=== PATIENT | male | born 1960 | race Caucasian/White ===

== ENCOUNTER → 2016-04-29 | Outpatient (CLI) | payer BC ==
--- NOTE | 2016-04-30 06:29 | REP ---
Left sided pain, status post trauma. There are no prior chest examinations to review. There is an abnormal patchy opacity seen in the left lower lobe. The right lung is clear and the right pleural angle is sharp. The heart is not enlarged. The osseous structures are within normal limits. IMPRESSION: Abnormal left lower lobe opacity. Since the patient has been involved in trauma, pulmonary contusion cannot be ruled out. Signed by Vishnu Brice DO 04/30/2016 12:05 P
--- NOTE | 2016-04-30 06:31 | REP ---
LEFT RIB SERIES: Five views of the left ribs. REASON: Pain after contusion. Five views of the left ribs show no evidence of an acute fracture. IMPRESSION: No evidence of a rib fracture. MTDD
== END ==
LOC: M RAD 12:33
PROVIDERS: ATTEND Physician Assistant Medical
DX: R07.9 Chest pain, unspecified (principal)

== ENCOUNTER 2016-05-29 12:27 | Inpatient (IN) | payer BC ==
[~2016-05-29] VITALS: Ht 177.8 cm; Wt 79.7 kg
[2016-05-29] MEDS ORDERED: OMEP20CA3 PO ×2 (12:48→15:55)
[2016-05-29] MEDS ORDERED: ANOR1AER INH (12:48)
[2016-05-29] MEDS ORDERED: CYCL10TA PO ×2 (12:48→15:55)
[2016-05-29] MEDS ORDERED: ALBU83IN NEB (12:48)
[2016-05-29] MEDS ORDERED: ALBU17IN INH ×2 (12:48→15:55)
[2016-05-29] MEDS ORDERED: IPRA2IN NEB (12:48)
[2016-05-29] MEDS ORDERED: HYDR-3713 PO ×2 (12:48→15:55)
[2016-05-29 13:56] LABS: BASO # 0.1 K/mm3 (0.0-0.2); BASO % 0.6 % (0.0-1.0); EOS # 0.1 K/mm3 (0.0-0.50); EOS % 0.4 % (0.0-3.0); LARGE UNSTAINED CELL # 0.2 K/mm3 (0.0-0.4); LARGE UNSTAINED CELL % 1.2 % (0.0-4.0); LYMPH # 1.3 K/mm3 (1.5-4.5); LYMPH % 7.7 % (24.0-44.0); MEAN CORPUSCULAR HEMOGLOBIN 29.5 pg (27.0-33.0); MEAN CORPUSCULAR HGB CONC 33.3 g/dl (32.0-36.5); MEAN CORPUSCULAR VOLUME 88.6 fl (80.0-96.0); MONO % 6.8 % (0.0-5.0); NEUTROPHILS % 83.4 % (36.0-66.0); PLATELET COUNT, AUTOMATED 385 k/mm3 (150-450); RED CELL DISTRIBUTION WIDTH 13.2 % (11.5-14.5); WHITE BLOOD COUNT 14.4 K/mm3 (4.0-10.0)
[2016-05-29 14:09] LABS: ANION GAP 7 MEQ/L (8-16); BLOOD UREA NITROGEN 14 MG/DL (7-18); CALCIUM LEVEL 9.7 MG/DL (8.5-10.1); CARBON DIOXIDE LEVEL 31 MEQ/L (21-32); CHLORIDE LEVEL 93 MEQ/L (98-107); CREATININE FOR GFR 0.76 MG/DL (0.70-1.30); GLOMERULAR FILTRATION RATE > 60.0 (>56); GLUCOSE, FASTING 106 MG/DL (70-105); POTASSIUM SERUM 4.5 MEQ/L (3.5-5.1); SODIUM LEVEL 131 MEQ/L (136-145)
[2016-05-29] MEDS ORDERED: fentaNYL 100 MCG/2 ML INJECTION (J3010) IV ONE (15:15)
[2016-05-29] MEDS ORDERED: fentaNYL 100 MCG/2 ML INJECTION (J3010) As Ordered ONE (15:17)
[2016-05-29] MEDS ORDERED: HEPARIN SOD (PORCINE) 5000 UNITS/ML VIAL IV ONE (15:30)
--- NOTE | 2016-05-29 15:35 | REP ---
Portable chest x-ray: Single view. History: Dyspnea, cough. Comparison chest x-rays from April 29, 2016. Findings: There is blunting of the left lateral pleural angle indicating a small to moderate left pleural effusion. This is a new finding when compared with the prior study. The prior study showed an infiltrate in the left lower lobe and there is increased density behind the heart and in the left perihilar region suggesting increased consolidation, possibly with atelectasis in the left lower lobe. Right lung remains clear. Heart is not felt to be enlarged. Impression: Progressive consolidation possibly with atelectasis left lower lobe. New left pleural effusion. Signed by Alhaji Bryson MD 05/29/2016 03:54 P
[2016-05-29] MEDS ORDERED: IPRA2IN INH (15:55)
[2016-05-29] MEDS ORDERED: ALBU83IN INH (15:55)
[2016-05-29] MEDS ORDERED: HEPARIN DRIP 25,000 UNITS in APPROPRIATE DILUENT 1 EA IV SCH (16:43)
[2016-05-29] MEDS ORDERED: MORPHINE 4 MG/ML 1ML SYRINGE IV ONE (16:45)
--- NOTE | 2016-05-29 17:01 | ECGEPIP ---
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
[2016-05-29] MEDS: HEPARIN DRIP 25,000 UNITS in APPROPRIATE DILUENT 1 EA IV SCH (17:15)
--- NOTE | 2016-05-29 18:18 | CCN ---
DATE: 05/29/2016 PULMONARY CRITICAL CARE SERVICE: I was called to the emergency department to evaluate this 55-year-old male who presented with back pain and dyspnea. His recent medical history includes a minor falling 04/29 following which he experienced some pain in his left-sided back. He was imaged at that point and a chest x-ray showed an infiltrate in the left. He was diagnosed with pulmonary contusion. Treated with pain medication and given antibiotics. With pain medication his symptoms waxed and waned pain and but never fully resolved. His dyspnea has been worsening over the past 3-4 days. He developed significant worsening in pain and was reevaluated sent for CT scan on outpatient basis. The CT scan of found to be abnormal and he was referred to the emergency department for further care. At bedside he is in moderately severe respiratory distress with quite severe back pain. His past medical and past pulmonary history includes 45 pack-years of cigarette smoking, he quit a 1 1/2 pack per day history 1 month ago. He has no history of hemoptysis. Denies history of recurring bronchopulmonary infections. Reports no significant occupational risk exposures or recent travel. He was diagnosed about 1 year ago with chronic obstructive lung disease on clinical grounds. He has never undergone spirometric testing. He was at that time given inhaled therapy which he used for short period of time but has not used it on a regular basis. REVIEW OF SYSTEMS: His review of systems was obtained from a constitutional standpoint. He has had a poor appetite and has lost some weight but he cannot quantify this. HEENT: No impairment of vision, smell, or hearing. CARDIOVASCULAR: He has never had palpitations, orthopnea or paroxysmal nocturnal dyspnea. PULMONARY: See above. GASTROINTESTINAL (GI): No history of recurring nausea, vomiting. He has had occasions of constipation and diarrhea since being pain medicine. There is no history of hepatitis or pancreatitis. GENITOURINARY (): There is no frequency, dysuria, or kidney stone history. ENDOCRINE: No history of diabetes or thyroid disease. DERM: No psoriasis or skin lesions. HEMATOLOGIC: No easy bruising or bleeding by history. NEUROLOGICAL: No history of stroke or seizure. PAST FAMILY HISTORY: Includes hypertension in his mother and spinal disease in his siblings and father. PHYSICAL EXAM: VITALS: His temperature is 95.8, pulse rate 112, respirations 18, blood pressure 139/99. HEENT: Oral and nasal mucosa are pink. Posterior pharynx not erythematous. No stridor of the trachea. No adenopathy in the neck or jugular venous distension. Carotid upstroke brisk no bruit. HEART: Sounds are regular without appreciable murmur. His breath sounds are absent in the left base with dullness to percussion. There are no focal sounds. The chest is hyperresonant to percussion. ABDOMEN: There is prominent spasm of the parathoracic and paralumbar muscles. Abdomen is soft with intact bowel sounds. EXTREMITIES: Cool. Tissue turgor of the right calf is increased. DIAGNOSTIC STUDIES: Chest x-ray shows a moderate left pleural effusion developed in the area of the infiltrate identified on x-ray [address] scan of the chest shows a pulmonary embolism in the right upper lobe. Possibly pathologic compression of the T10 vertebrae, involvement of 9th rib and the lateral process of L1. There is also consolidation in the left lung and moderate pleural effusion. White cell count is 14.4, hemoglobin 13.8, hematocrit 41.4, platelet count 385,000, sodium 131, potassium 4.5, chloride 93, CO2 31, BUN 14, creatinine 0.74, glucose 106. The primary problem requiring critical attention is pulmonary embolism right upper lobe. The patient has been given a bolus dose of heparin. I would recommend heparin drip. Spinal compression fracture possibly a pathologic fracture. We will discuss consultation with either Neurosurgery or Orthopedics to assure spinal stability. Left pleural effusions / left lung mass. I would consider drainage and sampling after the patient has been on anticoagulation sufficient to allow clot stabilization. Chronic obstructive pulmonary disease. Bronchodilator therapy on an as needed basis will be helpful. Admission the intensive care unit is appropriate for initial stabilization. Case was reviewed with the patient's family at bedside. 1 hour and 12 minutes was spent in the provision of bedside critical care coordination.
[2016-05-29] MEDS ORDERED: ALBUTEROL 90 MCG/ACT 8GM HFA INHALER INH PRN (19:45)
[2016-05-29] MEDS ORDERED: OMEPRAZOLE 20 MG CAP PO PRN (19:45)
[2016-05-29] MEDS ORDERED: IPRATROPIUM 0.02% SOLN 0.5MG/2.5 ML NEB INH PRN (19:45)
[2016-05-29 20:00] VITALS: BP 131/96
[2016-05-29] MEDS ORDERED: IPRATROPIUM 0.5MG/ALBUTEROL 2.5MG INH SOL UD 3ML (DUONEB)(J7620) NEB PRN (20:00)
[2016-05-29] MEDS: IPRATROPIUM 0.5MG/ALBUTEROL 2.5MG INH SOL UD 3ML (DUONEB)(J7620) NEB SCH ×4 (20:34→20:49)
[2016-05-29] MEDS: CYCLOBENZAPRINE 10 MG TAB PO SCH (20:35)
[2016-05-29] MEDS: MORPHINE 2 MG/ML 1ML SYRINGE IV PRN (20:35)
[2016-05-29 20:48] VITALS: O2SAT 94
--- NOTE | 2016-05-29 21:11 | HPE ---
DATE OF ADMISSION: 05/29/2016 PRIMARY CARE PROVIDER: Dr. Lin REASON FOR ADMISSION: Chest pain, shortness of breath. HISTORY OF PRESENT ILLNESS: The patient is a 55-year-old male with past medical history significant for chronic obstructive pulmonary disease (COPD), with no pulmonary function testing done presented to the emergency room complaining of shortness of breath and chest pain that has been going on for the past 5 to 6 weeks. He had a chest x-ray done on April 29, which they stated he was having a pneumonia or a pulmonary contusion. He continued to have chest pain, went to his primary care provider last Saturday who gave him a script for a CT scan of the chest to be done at [facility]. He went to for the scan and he was told to come to the emergency room. In the emergency room, the patient was told that he has a pulmonary emboli and a large pleural effusion on the left. At that point, pulmonology as well as the hospitalist were called in the emergency room. At this time the patient is complaining of back pain and chest pain, some shortness of breath which has improved after breathing treatment and oxygen. No fevers or chills. He is admitted under hospitalist service. REVIEW OF SYSTEMS: 12-point review of systems was obtained all of which was negative except for those mentioned above. PAST MEDICAL HISTORY: Significant for COPD without any formal pulmonary function testing done. PAST SURGICAL HISTORY: None. ALLERGIES: None. HOME MEDICATIONS: Include: - Ellipta - hydrocodone 5/325 every 4 hours as needed pain. - Cyclobenzaprine 10 mg by mouth three times a day - Ventolin 2 puffs inhaled every 4 hours as needed for shortness of breath - albuterol 2.5 mg inhaled three times a day as needed shortness of breath - omeprazole 40 mg by mouth daily as needed heartburn SOCIAL HISTORY: The patient used to smoke a pack and a half a day for the past 30 years. Quit three weeks ago. Alcohol use, occasional. Lives at home with his . FAMILY HISTORY; Noncontributory. PHYSICAL EXAMINATION ON ADMISSION: Temperature 95.8, pulse 134, respiratory rate 16, blood pressure is 114/76, pulse oximetry 94% on 2 liters nasal cannula. HEENT: Pupils equal, round, reactive to light and accommodation. NECK: Supple. No jugular venous distention (JVD). LUNGS: Diminished breath sounds in all lung hansen. ABDOMEN: Soft, nontender, nondistended. EXTREMITIES: No clubbing, cyanosis or edema. NEUROLOGICAL: Cranial nerves II-XII grossly intact. No focal deficits. LABORATORY FINDINGS: WBC 14.4, hemoglobin 13.8, hematocrit 41.4, platelet count 385. Sodium 131, potassium 4.5, chloride 93, BUN 14, fasting glucose 106, lactic acid 2.2. ASSESSMENT/PLAN: 1. Dyspnea secondary to pulmonary emboli, pleural effusion, possible pulmonary mass. Continue oxygen to keep saturation above 90%. Continue DuoNebs as needed and as needed. Dr. Fierro was consulted. Appreciate his input. Continue IV heparin. The pleural effusion to be drained after the patient has been anticoagulated sufficiently to allow clot stabilization per Dr. Fierro's recommendation. 2. History of COPD. Continue breathing treatments. 3. Spinal compression fracture, possibly pathologic. Continue pain medications. 4. DVT prophylaxis. The patient currently on heparin drip. The patient will be seen by Dr. Holly Bruno in the morning.
[2016-05-29 22:00] VITALS: BP 125/81
[2016-05-29] MEDS: NORCO, ANEXSIA 5/325MG TABLET (HYDROcodone/ACETAMINOPHEN) PO PRN (23:16)
[2016-05-29] MEDS: HEPARIN SOD (PORCINE) 5000 UNITS/ML VIAL IV PRN (23:32)
[2016-05-30] VITALS (11 sets, daily range): BP systolic 119–138; BP diastolic 76–93; O2SAT 92
[2016-05-30] MEDS: IPRATROPIUM 0.5MG/ALBUTEROL 2.5MG INH SOL UD 3ML (DUONEB)(J7620) NEB SCH ×4 (02:03→20:00)
[2016-05-30] MEDS: MORPHINE 2 MG/ML 1ML SYRINGE IV PRN ×5 (02:11→20:43)
[2016-05-30] MEDS: NORCO, ANEXSIA 5/325MG TABLET (HYDROcodone/ACETAMINOPHEN) PO PRN ×5 (04:35→22:08)
[2016-05-30 05:22] LABS: BASO # 0.1 K/mm3 (0.0-0.2); BASO % 0.9 % (0.0-1.0); EOS # 0.3 K/mm3 (0.0-0.50); EOS % 2.2 % (0.0-3.0); LARGE UNSTAINED CELL # 0.2 K/mm3 (0.0-0.4); LARGE UNSTAINED CELL % 1.6 % (0.0-4.0); LYMPH # 1.8 K/mm3 (1.5-4.5); LYMPH % 13.2 % (24.0-44.0); MEAN CORPUSCULAR HEMOGLOBIN 28.8 pg (27.0-33.0); MEAN CORPUSCULAR HGB CONC 32.3 g/dl (32.0-36.5); MEAN CORPUSCULAR VOLUME 89.2 fl (80.0-96.0); MONO # 1.1 K/mm3 (0.0-0.8); MONO % 8.5 % (0.0-5.0); NEUTROPHILS # 9.1 K/mm3 (1.8-7.7); NEUTROPHILS % 73.5 % (36.0-66.0); PLATELET COUNT, AUTOMATED 380 k/mm3 (150-450); RED CELL DISTRIBUTION WIDTH 13.2 % (11.5-14.5); WHITE BLOOD COUNT 12.4 K/mm3 (4.0-10.0)
[2016-05-30] MEDS: HEPARIN SOD (PORCINE) 5000 UNITS/ML VIAL IV PRN ×2 (05:42→12:36)
[2016-05-30 05:51] LABS: ALBUMIN 2.4 GM/DL (3.2-5.2); ALBUMIN/GLOBULIN RATIO 0.56 (1.00-1.93); ALKALINE PHOSPHATASE 103 U/L (45-117); ALT/SGPT 14 U/L (12-78); ANION GAP 10 MEQ/L (8-16); AST/SGOT 25 U/L (15-37); BILIRUBIN,TOTAL 0.6 MG/DL (0.2-1.0); BLOOD UREA NITROGEN 15 MG/DL (7-18); CALCIUM LEVEL 9.1 MG/DL (8.5-10.1); CARBON DIOXIDE LEVEL 27 MEQ/L (21-32); CHLORIDE LEVEL 93 MEQ/L (98-107); CREATININE FOR GFR 0.62 MG/DL (0.70-1.30); GLOMERULAR FILTRATION RATE > 60.0 (>56); GLUCOSE, FASTING 104 MG/DL (70-105); POTASSIUM SERUM 3.9 MEQ/L (3.5-5.1); SODIUM LEVEL 130 MEQ/L (136-145); TOTAL PROTEIN 6.7 GM/DL (6.4-8.2)
[2016-05-30] MEDS: CYCLOBENZAPRINE 10 MG TAB PO SCH ×3 (08:39→20:43)
--- NOTE | 2016-05-30 10:04 | REP ---
THORACIC SPINE: AP and lateral views of the thoracic spine are performed and compared to a prior CT of the chest 05/29/2016 performed at [facility]. Moderate compression fracture of T10 is again noted. There is metastatic involvement on the CT exam and this represents a pathologic fracture. No other compression fracture is seen of the thoracic vertebral bodies. There is mild diffuse degenerative changes with normal alignment. IMPRESSION: Pathologic fracture T10. Signed by Russ Lin MD 05/30/2016 02:25 P
--- NOTE | 2016-05-30 11:24 | REP ---
CT STUDY OF THE THORACIC SPINE WITHOUT CONTRAST: HISTORY: Fracture, question metastasis. Comparison is made with CT of the chest from [facility] May 29, 2016 and thoracic spine radiographs from May 30, 2016 showing a pathologic fracture at T10. TECHNIQUE: Helical scanning is acquired. 4 mm axial images are reformatted. Coronal and sagittal multiplanar reformation images are generated and reviewed. CT FINDINGS: Extensive consolidation throughout the left lower lobe combined with left pleural effusion are noted as seen on CT. CT study confirms the presence of a permeative lytic destructive metastatic lesion in the T10 vertebral body. This involves the vertebral body itself as well as the left-sided pedicle and the left transverse process where there is considerable cortical erosion. There is approximately 30% loss of vertebral body height at T10. There is no visible epidural or significant extraosseous soft tissue extension. There is another bony destructive spinal lesion involving the right transverse process at L1 consistent with a metastasis here. Lastly, there is a pathologic fracture of the right posterior 8th rib, with some lytic change on either side of the nondisplaced fracture. No other lytic destructive bone lesion is appreciated. Radionuclide bone scan may provide more complete evaluation of skeletal metastatic pattern. IMPRESSION: Findings consistent with lytic metastases at the T10, L1, and the right posterior 8th rib. At T10, there is a pathologic compression fracture deformity with approximate 30% loss of vertebral body height. No definite epidural or paraspinal soft tissue extension. Consider radionuclide bone scan and thoracic spine MRI scanning. Signed by Alhaji Bryson MD 05/30/2016 02:36 P
[2016-05-30] MEDS: HEPARIN DRIP 25,000 UNITS in APPROPRIATE DILUENT 1 EA IV SCH (12:14)
--- NOTE | 2016-05-30 16:11 | CR ---
DATE OF CONSULTATION: 05/30/2016 CONSULTATION REPORT FOR: Dr. Holly Bruno and Dr. Maria C Riddle CHIEF COMPLAINT: T10 fracture. HISTORY: This is a 55-year-old gentleman who has a long history of smoking who has had history of chronic obstructive pulmonary disease (COPD) who presented to the emergency room yesterday with shortness and breath and chest pain that had been ongoing for about 5-6 weeks. He was seen maybe a month ago when he had a possible pulmonary contusion and continued to have some chest soreness. CT scan was ordered and done at [facility]. When he went to the CT scan he actually got somewhat more short of breath and was admitted to the intensive care unit with a pulmonary embolus and a large pleural effusion on the left. Pulmonology and hospitalist have been involved. He had a CT scan that was done at [facility] and showed evidence of a possible pathologic fracture of T10. I was asked to evaluate him for this. He denies any recent trauma other than a month ago where he hit his right side of his rib cage against a railing. He says years ago he had a couple of falls on his tailbone but was not diagnosed with any fracture at that point. PAST SURGICAL HISTORY: Unremarkable. ALLERGIES: None known. PAST MEDICAL HISTORY: Notable for COPD. HOME MEDICATIONS: Include: - Ellipta - hydrocodone - cyclobenzaprine - Ventolin - albuterol - omeprazole SOCIAL HISTORY: Alcohol is occasional. He lives at home with his . He used to smoke a pack and a half a day for 30 years, quit 3 weeks ago. FAMILY HISTORY: Otherwise noncontributory. REVIEW OF SYSTEMS: Notable for shortness of breath. Notable for some recent weight loss, he says his appetite has been down. He has had some history of some chest discomfort, some rib discomfort and some lower to mid back discomfort as well. He denies any radicular pain, numbness, weakness, etc. Denies any bowel, bladder incontinence. CT scans were reviewed of his chest and also of his thoracic spine and they show evidence of a T10 compression type fracture. There was some finding at L1 and the right posterior 8th rib at T10 they felt had about 30% loss in vertebral height. There was not felt to be any epidural or paraspinal soft tissue extension. He had a plain x-ray of thoracic spine as well that showed this T10 compression fracture. PHYSICAL EXAM: Patient has on exam no abdominal tenderness. He is mildly tender in his lower thoracic region. He has intact strength through ankle dorsiflexion and plantar flexion and knee extension within the limits of an exam in the bed. He reports intact sensation throughout his lower extremities. He has symmetric 2+ reflexes at his knees. No obvious asymmetric muscle atrophy. Does not report tenderness elsewhere in his spine but does report some tenderness in his lumbar region and in the paraspinous muscle region. He denies any bowel and bladder changes or incontinence. IMPRESSION: 55-year-old gentleman admitted to the intensive care unit (ICU) with pulmonary embolus, pleural effusion, some shortness of breath and somewhat incidental finding of a T10 compression fracture that may be due to metastatic disease. RECOMMENDATIONS: At this point I think we need to do the followin. MRI scan of his thoracic spine. 2. MRI scan of his lumbar spine. 3. He needs a whole-body bone scan to look for other areas of possible metastatic disease. 4. Bedrest for now. 5. Will recommend consulting Franklyn Tierney at [facility] for placement of a thoracolumbosacral orthosis (TLSO) brace. Once the brace is fitted then we should be able to get the patient up and out of bed and moving some. At this point I think there would be some increased risk of further progression of the compression fracture until we get this braced. I also think we need to get more information about other areas of possible involvement. edited: 05/30/2016 1642 YOBANY ODONNELL
[2016-05-30] MEDS ORDERED: LORazepam 1 MG TAB PO ONE (17:00)
[2016-05-30] MEDS ORDERED: LORazepam 1 MG TAB PO PRN (17:45)
--- NOTE | 2016-05-30 18:14 | IPN ---
DATE: 05/30/2016 SUBJECTIVE: The patient is seen and examined in the room today. The patient still complains to have significant pain, mainly from the back. Still has some difficulty breathing and has required oxygen support. I had a chance to discuss the CT findings with the patient and all of his questions are answered. OBJECTIVE: VITAL SIGNS: Temperature is 98.7, pulse is 101, respiration rate is 18, blood pressure is 126/76, pulse oximetry is 99% with 3 liters nasal cannula. GENERAL: No sign of acute distress. Alert and oriented times three. HEENT: Normocephalic, atraumatic. Extraocular motors are grossly intact. CARDIOVASCULAR: Tachycardic. Positive S1, S2. LUNGS: Diminished breath sounds. Mainly on the left lung. I cannot appreciate any significant wheezes. ABDOMEN: Soft, nontender, nondistended. Bowel sounds present. No rebound or guarding. EXTREMITIES: No edema. No sign of cyanosis. LABORATORY DATA: WBC is 12.4, hemoglobin is 12.9, hematocrit 39.8, platelet count is 380. Sodium is 130, potassium 3.9, chloride is 93, carbon dioxide 27, BUN 15, creatinine 0.62, GFR greater than 60, fasting glucose is 104, lactic acid 1.4, calcium is 9.1, total bilirubin is 0.6, AST is 25, ALT 14, alkaline phosphatase 103, total protein 6.7, albumin is 2.4. PTT is 53.8. ASSESSMENT AND PLAN: 1. Pulmonary embolism. The patient is on heparin drip. He will use nebulizer as needed. Dr. Fierro has been consulted. We appreciate his input. 2. Left pleural effusion. Currently, the patient is being treated for acute pulmonary embolism. Once the patient is stable, the patient may benefit from fluid removal, per Dr. Fierro's recommendations. However, it may take several days to weeks prior to the fluid drainage. 3. History of chronic obstructive pulmonary disease (COPD). The patient has breathing treatments as needed. 4. Abnormal CT of the chest findings. The patient had imaging performed at [facility]. I personally reviewed his CT imaging and also requested official report to be sent to [facility] for the record. According to the CT findings, lung mass cannot be excluded. There are also multiple lymph nodes bilaterally. There is also bone lesions concerning for metastatic disease. 5. Multiple bone fractures. The main one is T10. The patient also has a right hip fracture. There are also multiple lytic bone lesions. I will consult the orthopedic team to see if the patient will need acute surgical intervention. 6. Deep vein thrombosis (DVT) prophylaxis. The patient is currently on heparin drip.
[2016-05-30] MEDS ORDERED: OXAZEPAM 10 MG CAP PO PRN (21:45)
[2016-05-30] MEDS ORDERED: LORazepam 2 MG/ML VIAL (J2060) IV PRN (23:00)
[2016-05-30] MEDS ORDERED: LORazepam 2 MG/ML VIAL (J2060) IV ONE (23:00)
[2016-05-30] MEDS ORDERED: LORazepam 2 MG/ML VIAL (J2060) IV STA (23:28)
[2016-05-31] VITALS (10 sets, daily range): BP systolic 109–150; BP diastolic 68–95; O2SAT 97
[2016-05-31] MEDS: IPRATROPIUM 0.5MG/ALBUTEROL 2.5MG INH SOL UD 3ML (DUONEB)(J7620) NEB SCH ×4 (01:51→19:10)
[2016-05-31] MEDS: LORazepam 2 MG/ML VIAL (J2060) IV SCH ×4 (03:14→14:33)
[2016-05-31] MEDS: MORPHINE 2 MG/ML 1ML SYRINGE IV PRN (03:15)
[2016-05-31] MEDS: HEPARIN SOD (PORCINE) 5000 UNITS/ML VIAL IV PRN (03:15)
[2016-05-31] MEDS: HEPARIN DRIP 25,000 UNITS in APPROPRIATE DILUENT 1 EA IV SCH ×2 (03:16→15:38)
[2016-05-31 04:20] LABS: BASO # 0.1 K/mm3 (0.0-0.2); BASO % 0.8 % (0.0-1.0); EOS # 0.3 K/mm3 (0.0-0.50); EOS % 2.2 % (0.0-3.0); LARGE UNSTAINED CELL # 0.2 K/mm3 (0.0-0.4); LARGE UNSTAINED CELL % 1.5 % (0.0-4.0); LYMPH # 1.7 K/mm3 (1.5-4.5); LYMPH % 11.2 % (24.0-44.0); MEAN CORPUSCULAR HEMOGLOBIN 28.8 pg (27.0-33.0); MEAN CORPUSCULAR HGB CONC 32.8 g/dl (32.0-36.5); MEAN CORPUSCULAR VOLUME 87.8 fl (80.0-96.0); MONO # 1.1 K/mm3 (0.0-0.8); MONO % 8.3 % (0.0-5.0); NEUTROPHILS # 10.2 K/mm3 (1.8-7.7); PLATELET COUNT, AUTOMATED 394 k/mm3 (150-450); RED CELL DISTRIBUTION WIDTH 13.2 % (11.5-14.5); WHITE BLOOD COUNT 13.5 K/mm3 (4.0-10.0)
[2016-05-31 04:48] LABS: ALBUMIN 2.3 GM/DL (3.2-5.2); ALBUMIN/GLOBULIN RATIO 0.58 (1.00-1.93); ALKALINE PHOSPHATASE 95 U/L (45-117); ALT/SGPT 12 U/L (12-78); ANION GAP 12 MEQ/L (8-16); AST/SGOT 22 U/L (15-37); BILIRUBIN,TOTAL 0.4 MG/DL (0.2-1.0); BLOOD UREA NITROGEN 15 MG/DL (7-18); CALCIUM LEVEL 8.5 MG/DL (8.5-10.1); CARBON DIOXIDE LEVEL 28 MEQ/L (21-32); CHLORIDE LEVEL 92 MEQ/L (98-107); CREATININE FOR GFR 0.54 MG/DL (0.70-1.30); GLOMERULAR FILTRATION RATE > 60.0 (>56); GLUCOSE, FASTING 106 MG/DL (70-105); POTASSIUM SERUM 3.3 MEQ/L (3.5-5.1); SODIUM LEVEL 132 MEQ/L (136-145); TOTAL PROTEIN 6.3 GM/DL (6.4-8.2)
[2016-05-31] MEDS ORDERED: OXAZEPAM 10 MG CAP PO SCH ×2 (06:00→22:00)
[2016-05-31] MEDS: LORazepam 2 MG/ML VIAL (J2060) IV PRN ×2 (06:30→15:32)
[2016-05-31 07:31] LABS: MAGNESIUM LEVEL 1.9 MG/DL (1.8-2.4)
--- NOTE | 2016-05-31 08:36 | REP ---
BONE SURVEY ADULT: 05/30/2016. Clinical history: Metastatic disease. Comparison: Thoracic spine CT and CT chest 05/29/2016. Findings: AP/lateral skull: In the skull a somewhat heterogeneous pattern noted in the outer table with some sclerosis. No definite erosive destructive change in the calvarium. There is one lucency in the maxillary alveolar ridge anteriorly on the lateral view. The maxillary alveolar ridge is edentulous. This could be from dental extraction or metastatic disease (less likely). AP/ lateral cervical spine: Extensive degenerative disc disease and cervical spondylosis with reversal of lordosis. No visible lytic or destructive lesion. AP/lateral thoracic: There is a grade 1 compression of the T10 vertebral body as seen on the CT scans, I do not see other vertebral collapse or compression deformities. The pedicles, spinous and transverse processes, posterior ribs and medial clavicles intact. Visualized ribs could not exclude some metastatic disease from overpenetration on the right side. AP/lateral lumbar spine: There are degenerative disc changes at L4-5 and L5-S1, less at L3-4. Dextrorotatory curve thoracolumbar junction. Loss of cortical margin of the right L1 transverse process consistent with metastatic disease is seen on the CT thoracic spine. Facet arthropathy is greatest in the right at L4-5 and L5-S1. SI joints, sacral ala and foramina intact. No visible destructive lesion in the lumbar of vertebral levels. The T10 compression deformity is also seen at the upper aspect of the lumbar field of view. AP pelvis: SI joints, sacral ala and foramina grossly intact. Iliac wings unremarkable. The bilateral hips show degenerative changes without visible fracture or destructive lesion. Pelvic ring intact. Pubic rami and symphysis pubis intact. No visible metastatic lesions in the hips. Right humerus: There is no fracture, lytic or destructive lesion of the humerus or visible adjacent bones. Left humerus: There are degenerative changes of the AC joint, but there is no visible lytic or destructive lesion of the humerus. Right femur: Some degenerative changes at the hip without fracture, lytic/destructive lesion of the femur. Left femur: There is a degenerative changes at the hip without lytic or destructive lesion in the hip or femoral shaft. Impression: 1. T10 compression deformity of the vertebral body and the right L1 transverse process lytic lesion noted. 2. Some subtle patchy sclerosis in the outer table of the skull might reflect metastatic disease. A lytic focus in the alveolar ridge of the maxilla is also noted which may be dental in origin, less likely metastatic. Bone scan will certainly be helpful for detection of smaller lesions. Signed by Kennedy Elias MD 05/31/2016 02:51 P
[2016-05-31] MEDS: KCL 10MEQ IN 100ML SWI (KRUN) 10 MEQ in APPROPRIATE DILUENT 1 EA IV SCH ×4 (08:42→09:44)
--- NOTE | 2016-05-31 08:42 | REP ---
AP PORTABLE CHEST: 05/31/2016 COMPARISON: 05/29/2016, PA chest 04/29/2016. CLINICAL HISTORY: Dyspnea, cough FINDINGS: The seated portable chest shows increasing size of the left pleural effusion and increased basilar infiltrate or atelectasis on that left side. Right side shows some subsegmental atelectatic changes in the base. There is a lesser degree of inflation than on the previous study. The cardiomediastinal silhouette is somewhat exaggerated by a lesser degree of inflation. No other interval change. Signed by Kennedy Elias MD 05/31/2016 02:51 P
--- NOTE | 2016-05-31 08:43 | REP ---
HEAD CT WITHOUT CONTRAST: HISTORY: Altered mental status. Patient on heparin drip. FINDINGS: Digital lateral solar development engineer radiograph is unremarkable. Bone window settings demonstrate an intact bony calvarium. Visualized paranasal sinuses are clear. No intraorbital abnormality is appreciated. On soft tissue window settings, there is no evidence of intracranial hemorrhage. Lin-white differentiation pattern is normal above and below the tentorium. There is no evidence of infarction, mass, extra-axial fluid collection or midline shift. Some vascular calcification is seen in the distal carotids. IMPRESSION: Mild vascular calcification. Otherwise negative noncontrast head CT. No acute intracranial abnormality. Signed by Alhaji Bryson MD 05/31/2016 01:09 P
[2016-05-31] MEDS: THIAMINE 100 MG TAB PO SCH (09:00)
[2016-05-31] MEDS: MULTIVITAMINS/MINERALS THERAP 1 TAB PO SCH (09:00)
[2016-05-31] MEDS: NORCO, ANEXSIA 5/325MG TABLET (HYDROcodone/ACETAMINOPHEN) PO PRN ×2 (09:13→15:18)
[2016-05-31] MEDS: CYCLOBENZAPRINE 10 MG TAB PO SCH ×3 (09:27→20:24)
--- NOTE | 2016-05-31 09:29 | REP ---
MRI thoracic spine without and with IV gadolinium: History: Rule out tumor. Technique: Sagittal and axial T1 and T2-weighted scans are acquired in the usual fashion with and without fat saturation. Sequences include spin echo, turbo spin-echo, and STIR imaging sequences. Gadolinium enhancement dose 16 ml of intravenous ProHance. MRI findings: There are fairly widespread skeletal metastatic lesions. The most advanced is at the T8 vertebral body where there is partial collapse. There is significant retropulsion at T8 producing central canal stenosis and cord compression. 7 mm of retropulsion is visible. There is evidence of epidural enhancing tumor both ventral and dorsal to the compressed spinal cord at T10 with moderate to severe central canal stenosis. The cord is displaced slightly to the right as there is more epidural disease and posterior element bony involvement on the left pedicle than compared to the right. There is enhancing metastatic involvement of the lamina and spinous process at T10 as well as the entire vertebral body and both pedicles. Midline AP dimension of the thecal sac and cord is 5.5 mm at T10. There is also a large metastatic lesion involving the posterior two-thirds of the T9 vertebral body and extending into the posterior elements bilaterally and the spinous process at T9. There is minimal ventral epidural disease and dorsal epidural disease without cord compression at T9. There is also a large area of enhancing involvement in the L1 vertebral body. This is at the bottom edge of the imaging field of view. No cord compression is seen here. At T8, there is a small area of enhancement in the left side of the lamina. At T7, there is abnormal signal intensity enhancement in the left pedicle and lamina and spinous process at T7 consistent with metastatic involvement. At T6, there is extensive abnormal signal intensity and enhancement throughout the vertebral body at T6. There is subtle collapse of the superior endplate. There is some enhancing epidural involvement at T6 along the left ventral lateral margin of the thecal sac. At T5, there is a small metastatic focus in the right posterior vertebral body. Impression: Multifocal skeletal metastatic disease. There is moderate to severe central canal stenosis at T10 due to collapse, retropulsion and epidural enhancing neoplasm. There is mild epidural enhancing involvement at T9 and at T6. Multiple other sites of osseous involvement are noted as above. Signed by Alhaji Bryson MD 05/31/2016 01:10 P
--- NOTE | 2016-05-31 09:33 | REP ---
MRI lumbar spine without and with IV contrast: History: Increased back pain. Injury in a fall 6 weeks ago. Contrast enhancement dose: 16 ml of intravenous ProHance. Technique: Sagittal and axial T1 and T2-weighted scans are acquired in the usual fashion with and without fat saturation. Sequences include spin echo, turbo spin-echo, and STIR imaging sequences. MRI findings: There are skeletal metastatic lesions in multiple sites. These include the anterior vertebral body at L1, the right transverse process at L1 as well as right pedicle and left pedicle at L1, the superior body at L2, the spinous process at L3, the spinous process at L4, and there are lesions in the first, second and fourth sacral segment. There is no evidence of enhancing epidural tumor. There is degenerative disc disease at L4-5 and L5-S1 with posterior disc bulging at L4-5 indenting the ventral margin of the thecal sac. Canal size is borderline at L4-5 due to this and ligamentum flavum and facet hypertrophy. There is central disc bulging and facet hypertrophy at L5-S1. Diffuse disc bulging is seen at L3-4 with mild facet hypertrophy and borderline canal size. Mild diffuse disc bulging is seen L2-3 and L1-2. Impression: Multifocal skeletal metastatic disease pattern as above. Degenerative spondylosis most pronounced at L3-4, L4-5, and L5-S1. Signed by Alhaji Bryson MD 05/31/2016 01:10 P
--- NOTE | 2016-05-31 12:50 | ECGEPIP ---
Stationary ECG Study [facility] Test Date: 2016-05-30 Pat Name: SAMY GARLAND Department: Room: [place] [address] Gender: M Machine Tester: : 1960 Requested By: ROMERO Blanco Order Number: [id number] Reading MD: Aime Adan Measurements Intervals [place] Rate: 124 P: 44 TN: 161 QRS: 3 QRSD: 104 T: 43 QT: 302 QTc: 435 Interpretive Statements Sinus tachycardia Somewhat low voltages with persistent S waves in V5 and V6 Body habitus versus pulmonary disease Not significantly changed from 05/29/16 Electronically Signed On 05-31-2016 12:50:27 EDT by Aime Adan
[2016-05-31] MEDS ORDERED: LORazepam 2 MG/ML VIAL (J2060) IV PRN (18:00)
[2016-05-31] MEDS: FOLIC ACID 1 MG TAB PO SCH (20:24)
--- NOTE | 2016-05-31 20:40 | IPN ---
DATE: 05/31/2016 SUBJECTIVE: The patient was seen and examined in the room today. During encounter, the patient was sedated from the Ativan. Yesterday night, the patient had events that resembled delirium tremens (around 11:00 p.m.). The patient started having hallucinations, agitation and tachycardia. Multiple doses of Ativan have been given to the patient to control the symptoms. I had a chance to discuss with the patient's . At baseline, the patient, has been drinking around seven beers on a daily basis. Recently, the patient just quit smoking, and he has increased amount of alcohol consumption to compensate the withdrawal from the smoking cessation. OBJECTIVE: VITAL SIGNS: Temperature is 97.2, pulse 115, respirations 24, blood pressure is 117/75, pulse oximetry is 96% with 4 liters nasal cannula. GENERAL: The patient is sedated. The patient is not alert, awake or oriented. Intermittent non-purposeful body movements. HEENT: Normocephalic, atraumatic. Extraocular motor grossly intact. CARDIOVASCULAR: Tachycardia, positive S1, S2. LUNGS: Diminished breath sounds, mainly in the left lung. I cannot appreciate significant wheezing. ABDOMEN: Soft, nontender, nondistended. Bowel sounds present. No rebound, no guarding. EXTREMITIES: No edema, no sign of cyanosis. LABORATORY DATA: WBC is 13.5, hemoglobin 12.2, hematocrit 37.1, platelet count is 394. Sodium is 132, potassium 3.3, chloride is 92, carbon dioxide 28, BUN is 15, creatinine is 0.54, GFR greater than 60, fasting glucose is 106, calcium 8.5, magnesium 1.9, total bilirubin 0.4, AST 22, ALT is 12, alkaline phosphatase is 95, total protein is 6.3, albumin is 2.3. ASSESSMENT AND PLAN: 1. Pulmonary embolism. The patient is monitored in the intensive care unit (ICU) . The patient is currently on a heparin drip. The patient had nebulizer treatment as needed. Pulmonology has been consulted. Appreciate their assistance. 2. Delirium tremens. Information gathered from the patient's . The patient does have significant alcohol abuse and yesterday, in the evening time, the patient required significant amount of benzodiazepine to treat the patient's symptoms. The patient currently still has altered mental status changes. Now the patient is able to tolerate oral, the patient will be on oral Serax supplemented with as needed IV Ativan. 3. Altered mental status, most likely secondary to delirium tremens. However, the patient is on anticoagulation. There is a concern for possible acute brain bleeding - we will get a stat CT of the brain to rule out the diagnosis. 4. Alcohol abuse. The patient will have scheduled and as needed benzodiazepine to prevent a recurrence of delirium tremens. The patient will have folic acid, thiamine and multivitamin. 5. History of chronic obstructive pulmonary disease (COPD). The patient will have a breathing treatment as needed. 6. Abdomen and CT of the chest finding warrant workup to rule out metastatic disease. Currently, we will stabilize the patient from the patient's pulmonary embolism (PE). Will pursue the workup once the patient is more stable. 7. Multiple abnormal bone findings and fractures. Orthopedic team has been consulted. The patient will have a brace to stabilize the vertebrae. We appreciate orthopedic team's input. 8. Deep vein thrombosis (DVT) prophylaxis. The patient currently has a pulmonary embolism. The patient is on a heparin drip. [facility]
[2016-05-31] MEDS ORDERED: LORazepam 2 MG/ML VIAL (J2060) IV ONE ×3 (21:30→22:30)
--- NOTE | 2016-05-31 22:39 | IPN ---
DATE: 05/31/2016 Discussed this patient with Dr. Lucia today who had discussed it with Dr. Sanchez. The patient has a T10 apparent metastatic lesion with some compression and some narrowing of the epidural space. Dr. Lucia felt this was not a surgical problem and felt that it should be treated with radiation. Patient is not having any neurologic compromise at this point. A brace has been ordered.
[2016-05-31] MEDS ORDERED: LORazepam 2 MG/ML VIAL (J2060) IV STA (23:17)
[2016-05-31] MEDS ORDERED: HALOPERIDOL 5 MG/ML VIAL (J1630) As Ordered ONE (23:25)
[2016-05-31] MEDS ORDERED: HALOPERIDOL 5 MG/ML VIAL (J1630) IM ONE (23:30)
[2016-05-31] MEDS ORDERED: LORazepam 2 MG/ML VIAL (J2060) IM STA (23:53)
[2016-06-01] VITALS (37 sets, daily range): BP systolic 93–154; BP diastolic 61–104
[2016-06-01] MEDS ORDERED: LORazepam 2 MG/ML VIAL (J2060) IV STA (00:05)
[2016-06-01] MEDS: HEPARIN SOD (PORCINE) 5000 UNITS/ML VIAL IV PRN (01:16)
[2016-06-01] MEDS: IPRATROPIUM 0.5MG/ALBUTEROL 2.5MG INH SOL UD 3ML (DUONEB)(J7620) NEB SCH ×4 (02:00→20:26)
[2016-06-01] MEDS: LORazepam 2 MG/ML VIAL (J2060) IV PRN (02:37)
[2016-06-01] MEDS: dexmedeTOMidine 200 MCG in APPROPRIATE DILUENT 1 EA IV SCH ×4 (03:02→20:43)
[2016-06-01] MEDS ORDERED: OXAZEPAM 10 MG CAP PO SCH (04:00)
[2016-06-01] MEDS: HEPARIN DRIP 25,000 UNITS in APPROPRIATE DILUENT 1 EA IV SCH ×2 (05:30→17:47)
[2016-06-01 07:34] LABS: BASO % 0.5 % (0.0-1.0); EOS # 0.3 K/mm3 (0.0-0.50); EOS % 2.5 % (0.0-3.0); LARGE UNSTAINED CELL # 0.2 K/mm3 (0.0-0.4); LARGE UNSTAINED CELL % 1.7 % (0.0-4.0); LYMPH # 1.5 K/mm3 (1.5-4.5); LYMPH % 11.3 % (24.0-44.0); MEAN CORPUSCULAR HEMOGLOBIN 29.5 pg (27.0-33.0); MEAN CORPUSCULAR HGB CONC 33.2 g/dl (32.0-36.5); MONO # 0.8 K/mm3 (0.0-0.8); MONO % 6.7 % (0.0-5.0); NEUTROPHILS # 8.9 K/mm3 (1.8-7.7); NEUTROPHILS % 77.4 % (36.0-66.0); PLATELET COUNT, AUTOMATED 416 k/mm3 (150-450); RED CELL DISTRIBUTION WIDTH 13.2 % (11.5-14.5); WHITE BLOOD COUNT 11.5 K/mm3 (4.0-10.0)
[2016-06-01 07:59] LABS: ALBUMIN 2.2 GM/DL (3.2-5.2); ALBUMIN/GLOBULIN RATIO 0.58 (1.00-1.93); ALKALINE PHOSPHATASE 90 U/L (45-117); ALT/SGPT 14 U/L (12-78); ANION GAP 9 MEQ/L (8-16); AST/SGOT 26 U/L (15-37); BILIRUBIN,TOTAL 0.5 MG/DL (0.2-1.0); BLOOD UREA NITROGEN 9 MG/DL (7-18); CALCIUM LEVEL 9.1 MG/DL (8.5-10.1); CARBON DIOXIDE LEVEL 28 MEQ/L (21-32); CHLORIDE LEVEL 95 MEQ/L (98-107); CREATININE FOR GFR 0.39 MG/DL (0.70-1.30); GLOMERULAR FILTRATION RATE > 60.0 (>56); GLUCOSE, FASTING 105 MG/DL (70-105); POTASSIUM SERUM 3.9 MEQ/L (3.5-5.1); SODIUM LEVEL 132 MEQ/L (136-145)
--- NOTE | 2016-06-01 08:39 | REP ---
Portable chest x-ray: Single view. History: Left pleural effusion. Comparison study May 31, 2016. Findings: EKG monitoring electrodes overlie the chest along with oxygen delivery tubing. There is blunting of the left lateral pleural angle and hazy pleural opacity consistent with moderate left pleural effusion. Cardiomediastinal silhouette is unchanged. No new infiltrate is seen. No other significant finding. Signed by Alhaji Bryson MD 06/01/2016 11:21 A
[2016-06-01] MEDS: THIAMINE 100 MG TAB PO SCH (09:00)
[2016-06-01] MEDS: CYCLOBENZAPRINE 10 MG TAB PO SCH ×3 (09:00→21:12)
[2016-06-01] MEDS: MULTIVITAMINS/MINERALS THERAP 1 TAB PO SCH (09:00)
[2016-06-01] MEDS: MORPHINE 2 MG/ML 1ML SYRINGE IV PRN (11:40)
--- NOTE | 2016-06-01 15:18 | REP ---
PORTABLE CHEST: AP portable view of the chest is performed and compared to prior study of at 6:52 a.m. The current study is performed at 1:16 p.m. Left effusion and left lung infiltrate are not significantly changed. Mildly accentuated interstitial markings on the right are stable. IMPRESSION: Stable exam. Signed by Russ Lin MD 06/01/2016 03:30 P
[2016-06-01] MEDS: NORCO, ANEXSIA 5/325MG TABLET (HYDROcodone/ACETAMINOPHEN) PO PRN (16:31)
--- NOTE | 2016-06-01 16:38 | REP ---
WHOLE BODY BONE SCAN: Following the intravenous administration of 19.6 millicuries Technetium 99M MDP, patient's whole body was imaged in the anterior and posterior projections with additional obliques images of the thoracic and pelvic regions performed as well as lateral views of the calvarium and knees. Increased uptake is seen in the posterior aspect of the right 6th rib and posterior right 9th rib. There is increased uptake in the end of the right 11th rib. There is increased uptake in the anterior end of the right 3rd rib. There is increased uptake in the end of the left 8th rib. There appears to be subtle increased uptake in the T10 vertebral body with no other definite vertebral body uptake. Findings are compatible with metastatic lesions as seen on prior CT and MRI exams. There appears to be mild arthritic uptake in the left hand and wrist and at both patellofemoral joints. There is no other compelling scintigraphic evidence of osseous metastases. IMPRESSION: Multiple foci of increased uptake in bilateral ribs and subtle increased uptake in T10 compatible with metastatic lesions. No other evidence of metastatic lesions scintigraphically. Signed by Russ Lin MD 06/01/2016 04:56 P
--- NOTE | 2016-06-01 17:45 | IPN ---
DATE: 06/01/2016 SUBJECTIVE: The patient is seen and examined in the room today. The patient is fully sedated and the patient is on Precedex drip. The patient had an event of worsening delirium tremens; therefore, and the patient was then placed on the Precedex drip. The patient is sedated during encounter. We explained the situation to the patient's proxy, the patient's , and also discussed the findings from the imaging study, and Medical Orders for Life-Sustaining Treatment (MOLST) form is updated to DO NOT RESUSCITATE (DNR), DO NOT INTUBATE (DNI). OBJECTIVE: VITAL SIGNS: The temperature is 97.2, pulse is 94, respiratory rate 22, blood pressure 94/69, pulse oximetry 99% with four liters nasal cannula. GENERAL: The patient is sedated, not awake or oriented. HEENT: Normocephalic, atraumatic. CARDIOVASCULAR: Tachycardic with positive S1, S2. LUNGS: Decreased breath sounds mainly on the left lung. ABDOMEN: Soft, nontender, nondistended. Bowel sounds are present. EXTREMITIES: No edema. No sign of cyanosis. LABORATORY DATA: WBC 11.5, hemoglobin 11.5, hematocrit 34.7, platelet count is 416. Sodium is 132, potassium 3.9, chloride 95, carbon dioxide 28, BUN 9, creatinine 0.39, GFR greater than 60, fasting glucose 105, calcium 9.1, total bilirubin is 0.5, AST 26, ALT 14, alkaline phosphatase is 90. Total protein is 6, albumin 2.2. IMAGING: MRI of the thoracic spine showed multifocal skeletal metastatic disease. Moderate to severe central canal stenosis at T10 due to the collapse, retropulsion and epidural enhancing neoplasm. There is some mild epidural enhancing involvement at T9 and T6. MRI of the lumbar spine showed multifocal skeletal metastatic disease and degenerative spondylosis most pronounced at L3-4, L4-5, and L5-S1. ASSESSMENT AND PLAN: 1. Delirium tremens. Due to recurrence of the delirium tremens, the patient was placed on Precedex drip to control the patient's delirium. When it is appropriate, the drip will be titrated. 2. Pulmonary embolism. The patient is continued to be monitored in the intensive care unit (ICU). The patient is on heparin drip. 3. Alcohol abuse. Currently the patient experienced delirium tremens. The patient is under sedation. Will titrate the drip. The patient also has Ativan 2 mg by mouth every two hours as needed. The patient will be on folic acid, thiamine and multivitamin. 4. Diagnostic findings suggest metastatic disease. MRI of the lumbar and cervical spine findings were discussed with the patient, and the patient also had a CT of the chest suggestive of metastatic disease. Today, I explained to the patient's proxy, the , that the patient has extensive metastatic disease. The patient's prognosis is guarded at this moment, and MOLST form was updated, and the patient is now a DNR/DNI. At this moment, the patient is not oriented, and the patient does not have decision-making capacity. 5. History of chronic obstructive pulmonary disease (COPD). The patient has breathing treatment if needed. 6. Deep venous thrombosis (DVT) prophylaxis. The patient is on heparin drip for his pulmonary embolism.
[2016-06-01] MEDS ORDERED: LORazepam 2 MG/ML VIAL (J2060) IV PRN (18:00)
[2016-06-01] MEDS: FOLIC ACID 1 MG TAB PO SCH (21:13)
[2016-06-02] VITALS (22 sets, daily range): BP systolic 99–137; BP diastolic 64–92; O2SAT 92
[2016-06-02] MEDS: MORPHINE 2 MG/ML 1ML SYRINGE IV PRN ×4 (00:26→21:44)
[2016-06-02] MEDS: IPRATROPIUM 0.5MG/ALBUTEROL 2.5MG INH SOL UD 3ML (DUONEB)(J7620) NEB SCH ×4 (01:29→20:44)
[2016-06-02] MEDS: dexmedeTOMidine 200 MCG in APPROPRIATE DILUENT 1 EA IV SCH ×3 (03:03→16:13)
[2016-06-02 05:07] LABS: BASO # 0.1 K/mm3 (0.0-0.2); BASO % 0.6 % (0.0-1.0); EOS # 0.5 K/mm3 (0.0-0.50); EOS % 3.8 % (0.0-3.0); LARGE UNSTAINED CELL # 0.3 K/mm3 (0.0-0.4); LARGE UNSTAINED CELL % 2.5 % (0.0-4.0); LYMPH # 1.3 K/mm3 (1.5-4.5); LYMPH % 11.3 % (24.0-44.0); MEAN CORPUSCULAR HGB CONC 32.2 g/dl (32.0-36.5); MEAN CORPUSCULAR VOLUME 90.1 fl (80.0-96.0); MONO # 0.9 K/mm3 (0.0-0.8); MONO % 7.9 % (0.0-5.0); NEUTROPHILS # 8.8 K/mm3 (1.8-7.7); NEUTROPHILS % 73.9 % (36.0-66.0); PLATELET COUNT, AUTOMATED 447 k/mm3 (150-450); RED CELL DISTRIBUTION WIDTH 13.2 % (11.5-14.5); WHITE BLOOD COUNT 11.9 K/mm3 (4.0-10.0)
[2016-06-02 05:49] LABS: ALBUMIN 2.1 GM/DL (3.2-5.2); ALKALINE PHOSPHATASE 91 U/L (45-117); ALT/SGPT 15 U/L (12-78); ANION GAP 10 MEQ/L (8-16); AST/SGOT 26 U/L (15-37); BILIRUBIN,TOTAL 0.5 MG/DL (0.2-1.0); BLOOD UREA NITROGEN 11 MG/DL (7-18); CALCIUM LEVEL 8.7 MG/DL (8.5-10.1); CARBON DIOXIDE LEVEL 28 MEQ/L (21-32); CHLORIDE LEVEL 93 MEQ/L (98-107); CREATININE FOR GFR 0.52 MG/DL (0.70-1.30); GLOMERULAR FILTRATION RATE > 60.0 (>56); GLUCOSE, FASTING 96 MG/DL (70-105); POTASSIUM SERUM 3.7 MEQ/L (3.5-5.1); SODIUM LEVEL 131 MEQ/L (136-145); TOTAL PROTEIN 6.3 GM/DL (6.4-8.2)
[2016-06-02] MEDS: HEPARIN DRIP 25,000 UNITS in APPROPRIATE DILUENT 1 EA IV SCH ×2 (05:50→18:38)
--- NOTE | 2016-06-02 08:40 | REP ---
REASON: No left pleural effusion. COMPARISON: 06/01/2016 Once again, there is a left hemithoracic opacity with basilar predominance along with silhouetting out of the left heart border and diaphragmatic surface of the left lung. The appearance is somewhat less prominent compared to the prior semiupright exam, today's exam being upright. The right lung is clear and stable. There is no change in the appearance of the osseous structures. IMPRESSION: Possible improvement in the left-sided opacity. This needs to be correlated clinically with recommendation made for PA and lateral views of the chest if and when clinically feasible. Signed by Vishnu Brice DO 06/02/2016 08:49 A
[2016-06-02] MEDS: MULTIVITAMINS/MINERALS THERAP 1 TAB PO SCH (09:04)
[2016-06-02] MEDS: THIAMINE 100 MG TAB PO SCH (09:04)
[2016-06-02] MEDS: CYCLOBENZAPRINE 10 MG TAB PO SCH ×3 (09:04→21:38)
[2016-06-02] MEDS: NORCO, ANEXSIA 5/325MG TABLET (HYDROcodone/ACETAMINOPHEN) PO PRN (11:43)
[2016-06-02] MEDS ORDERED: BISACODYL 5 MG TAB PO PRN (13:45)
--- NOTE | 2016-06-02 14:20 | IPN ---
DATE: 06/02/2016 SUBJECTIVE: The patient is seen and examined in the room today. The patient is on Precedex drip with sedation. The patient still has intermittent involuntary extremity movements. The patient's son came to visit from [place]. The patient's current situation and future workup explained to the son and the patient's . All their questions were answered. No events were reported overnight. OBJECTIVE: VITAL SIGNS: Temperature is 99.4, pulse is 101, respirations 24, blood pressure 106/72, pulse oximetry 95% with 6 liters nasal cannula. GENERAL: The patient is sedated. The patient is not alert or awake. HEENT: Normocephalic, atraumatic. Extraocular movements grossly intact. CARDIOVASCULAR: Tachycardic and positive S1, S2. LUNGS: Diminished breath sounds mainly on the left lung. Decreased breath sounds at the right lung. No wheezes appreciated. ABDOMEN: Soft, nontender, nondistended. Bowel sounds present. EXTREMITIES: No edema. No sign of cyanosis. LABORATORY DATA: WBC 11.9, hemoglobin 12, hematocrit 37.5, platelet count is 447. Sodium is 131, potassium 3.7, chloride 93, carbon dioxide 28, BUN 11, creatinine 0.52, GFR greater than 60, fasting glucose 96, calcium 8.7, total bilirubin 0.5, AST 26, ALT 15, alkaline phosphatase 91. Total protein 6,3 and albumin 2.1. Chest x-ray showed possibly improvement in the left side opacity. ASSESSMENT AND PLAN: 1. Delirium tremens. The patient is currently under sedation from the Precedex drip. The patient still has some intermittent involuntary arm movements. The patient also had Ativan every 2 hours as needed. 2. Pulmonary embolism. The patient is on a heparin drip and monitored in the intensive care unit (ICU). 3. History of alcohol abuse. The patient has folic acid, thiamine and multivitamin. 4. Diagnostic test findings suggest metastatic disease. MRI of the lumbar and cervical spine suggestive of metastatic disease. Bone scan was also done and showed metastatic bone lesions. The patient is DO NOT RESUSCITATE/DO NOT INTUBATE (DNR/DNI). I spent a significant amount of time to discuss the situation with the son and the and also future work up was explained. Currently the patient is sedated and the patient is being managed for DT. The patient does not have decision-making capacity. 5. History of chronic obstructive pulmonary disease (COPD). Breathing treatment as needed. 6. Deep venous thrombosis (DVT) prophylaxis. The patient is on heparin drip.
[2016-06-02] MEDS: DOCUSATE SODIUM 100 MG CAP PO SCH ×2 (14:45→21:38)
[2016-06-02] MEDS: SODIUM CHLORIDE NASAL 0.65% SPRAY BTL (OCEAN) PRN (18:46)
[2016-06-02] MEDS: FOLIC ACID 1 MG TAB PO SCH (21:38)
[2016-06-03] VITALS (15 sets, daily range): BP systolic 92–133; BP diastolic 63–89
[2016-06-03] MEDS: MORPHINE 2 MG/ML 1ML SYRINGE IV PRN ×4 (01:53→19:59)
[2016-06-03] MEDS: IPRATROPIUM 0.5MG/ALBUTEROL 2.5MG INH SOL UD 3ML (DUONEB)(J7620) NEB SCH ×4 (02:24→19:20)
[2016-06-03] MEDS: dexmedeTOMidine 200 MCG in APPROPRIATE DILUENT 1 EA IV SCH (03:30)
[2016-06-03 04:53] LABS: BASO # 0.1 K/mm3 (0.0-0.2); BASO % 0.6 % (0.0-1.0); EOS # 0.4 K/mm3 (0.0-0.50); EOS % 3.7 % (0.0-3.0); LARGE UNSTAINED CELL # 0.2 K/mm3 (0.0-0.4); LARGE UNSTAINED CELL % 1.4 % (0.0-4.0); LYMPH # 1.5 K/mm3 (1.5-4.5); LYMPH % 11.1 % (24.0-44.0); MEAN CORPUSCULAR HEMOGLOBIN 29.8 pg (27.0-33.0); MEAN CORPUSCULAR HGB CONC 33.6 g/dl (32.0-36.5); MEAN CORPUSCULAR VOLUME 88.6 fl (80.0-96.0); MONO % 8.5 % (0.0-5.0); NEUTROPHILS # 8.7 K/mm3 (1.8-7.7); NEUTROPHILS % 74.7 % (36.0-66.0); PLATELET COUNT, AUTOMATED 484 k/mm3 (150-450); RED CELL DISTRIBUTION WIDTH 13.2 % (11.5-14.5); WHITE BLOOD COUNT 11.7 K/mm3 (4.0-10.0)
[2016-06-03 05:12] LABS: ALBUMIN 2.1 GM/DL (3.2-5.2); ALKALINE PHOSPHATASE 90 U/L (45-117); ALT/SGPT 14 U/L (12-78); ANION GAP 9 MEQ/L (8-16); AST/SGOT 26 U/L (15-37); BILIRUBIN,TOTAL 0.5 MG/DL (0.2-1.0); BLOOD UREA NITROGEN 8 MG/DL (7-18); CALCIUM LEVEL 8.3 MG/DL (8.5-10.1); CARBON DIOXIDE LEVEL 29 MEQ/L (21-32); CHLORIDE LEVEL 94 MEQ/L (98-107); CREATININE FOR GFR 0.45 MG/DL (0.70-1.30); GLOMERULAR FILTRATION RATE > 60.0 (>56); GLUCOSE, FASTING 105 MG/DL (70-105); POTASSIUM SERUM 3.6 MEQ/L (3.5-5.1); SODIUM LEVEL 132 MEQ/L (136-145); TOTAL PROTEIN 6.3 GM/DL (6.4-8.2)
[2016-06-03] MEDS: HEPARIN DRIP 25,000 UNITS in APPROPRIATE DILUENT 1 EA IV SCH ×2 (05:23→17:49)
[2016-06-03] MEDS: MULTIVITAMINS/MINERALS THERAP 1 TAB PO SCH (09:26)
[2016-06-03] MEDS: CYCLOBENZAPRINE 10 MG TAB PO SCH ×3 (09:26→19:46)
[2016-06-03] MEDS: THIAMINE 100 MG TAB PO SCH (09:26)
[2016-06-03] MEDS: DOCUSATE SODIUM 100 MG CAP PO SCH ×2 (09:26→19:46)
--- NOTE | 2016-06-03 09:32 | REP ---
REASON: Followup opacity. COMPARISON: 06/02/2016 at 5:25 a.m. Left-sided opacity is essentially unchanged. The technique utilized in obtaining the radiograph has magnified the cardiac silhouette and accentuated the interstitial markings. Cardiomediastinal silhouette and right lung unchanged. The osseous structures are unchanged. IMPRESSION: No significant change. Signed by Vishnu Brice DO 06/03/2016 09:40 A
[2016-06-03] MEDS: NORCO, ANEXSIA 5/325MG TABLET (HYDROcodone/ACETAMINOPHEN) PO PRN ×2 (12:27→21:25)
--- NOTE | 2016-06-03 15:11 | IPN ---
DATE: 06/03/2016 SUBJECTIVE: The patient is seen and examined in the room today. The patient is actually awake, calm, alert and oriented times three, able to answer all the questions. Per patient, the patient does not remember what happened yesterday or the day before. The patient does not even remember he has delirious behavior. Yesterday the patient was in the process of weaning off Precedex drip; however, near the end of the day, the patient started having signs of returning altered mental disturbance. The patient is still not able to answer questions correctly, and the Precedex has had to be increased again yesterday night, and the tapering is started this morning again. No overnight events reported. OBJECTIVE: VITAL SIGNS: Temperature is 98, pulse is 99, respirations 22, blood pressure is 133/71, pulse oximetry 95% with six liters nasal cannula. GENERAL: No sign of acute distress. Alert and oriented times three. HEENT: Normocephalic, atraumatic. Extraocular motor grossly intact. CARDIOVASCULAR: Tachycardic positive S1, S2. LUNGS: Diminished breath sounds mainly on the left lung. No wheezes appreciated. ABDOMEN: Soft, nontender, nondistended. Bowel sounds present. EXTREMITIES: No edema. No sign of cyanosis. LABORATORY DATA: WBC is 11.7, hemoglobin 11.7, hemoglobin 34.8, platelet count is 484. Sodium 132, potassium 3.6, chloride 94, carbon dioxide 29, BUN 8, creatinine 0.45, GFR greater than 60, fasting glucose 105, calcium 8.3, total bilirubin 0.5, AST 26, ALT 14, alkaline phosphatase 90. Total protein 6.3, albumin 2.1. ASSESSMENT AND PLAN: 1. Delirium tremens. The patient's mentation is improving. The patient is in the process of weaning off the Precedex drip. 2. Pulmonary embolism. The patient is on heparin drip. The patient will continued to be monitored on telemetry. 3. History of alcohol abuse, on folic acid, thiamine and multivitamin. 4. Left pleural effusion. Currently the patient's mentation is improving. We anticipate to reevaluate again tomorrow to see if the patient will benefit from pleurocentesis. Imaging study suggests malignancy metastasis. The patient is DO NOT RESUSCITATE/DO NOT INTUBATE (DNR/DNI. Medical Orders for Life-Sustaining Treatment (MOLST) form obtained from the patient's proxy, the . The MOLST form was signed with the patient was undergoing the deep delirium tremens management. The patient did not have decision-making capacity at that moment, and we may need to address the DNR/DNI issue when the patient is fully oriented. We need to pursue the workup to establish cancer diagnosis, and the discussion will occur tomorrow if the patient's status demonstrates full orientation and decision-making capacity. 4. History of chronic obstructive pulmonary disease (COPD). Breathing treatment as needed. 5. Deep venous thrombosis (DVT) prophylaxis. The patient is currently on heparin drip.
[2016-06-03] MEDS: FOLIC ACID 1 MG TAB PO SCH (19:46)
[2016-06-03] MEDS: LORazepam 2 MG/ML VIAL (J2060) IV PRN (20:48)
[2016-06-03] MEDS ORDERED: LORazepam 2 MG/ML VIAL (J2060) IV STA (21:28)
[2016-06-03] MEDS ORDERED: OXAZEPAM 15 MG CAP PO SCH (22:30)
[2016-06-03] MEDS: OXAZEPAM 10 MG CAP PO SCH (22:32)
[2016-06-04] VITALS (10 sets, daily range): BP systolic 112–146; BP diastolic 62–91
[2016-06-04] MEDS: LORazepam 2 MG/ML VIAL (J2060) IV PRN ×10 (00:53→21:11)
[2016-06-04] MEDS: IPRATROPIUM 0.5MG/ALBUTEROL 2.5MG INH SOL UD 3ML (DUONEB)(J7620) NEB SCH ×4 (01:28→20:35)
[2016-06-04] MEDS ORDERED: LORazepam 2 MG/ML VIAL (J2060) IV STA ×2 (03:38→09:25)
[2016-06-04] MEDS: OXAZEPAM 10 MG CAP PO SCH ×4 (04:44→23:53)
[2016-06-04] MEDS: MORPHINE 2 MG/ML 1ML SYRINGE IV PRN ×6 (07:27→20:19)
[2016-06-04] MEDS: DOCUSATE SODIUM 100 MG CAP PO SCH ×2 (07:27→20:18)
[2016-06-04] MEDS: CYCLOBENZAPRINE 10 MG TAB PO SCH ×3 (07:28→20:18)
[2016-06-04] MEDS: THIAMINE 100 MG TAB PO SCH (07:28)
[2016-06-04] MEDS: MULTIVITAMINS/MINERALS THERAP 1 TAB PO SCH (07:28)
[2016-06-04 08:23] LABS: BASO % 0.4 % (0.0-1.0); EOS # 0.4 K/mm3 (0.0-0.50); EOS % 3.6 % (0.0-3.0); LARGE UNSTAINED CELL # 0.2 K/mm3 (0.0-0.4); LARGE UNSTAINED CELL % 1.6 % (0.0-4.0); LYMPH # 1.2 K/mm3 (1.5-4.5); LYMPH % 8.7 % (24.0-44.0); MEAN CORPUSCULAR HEMOGLOBIN 29.3 pg (27.0-33.0); MEAN CORPUSCULAR HGB CONC 33.2 g/dl (32.0-36.5); MEAN CORPUSCULAR VOLUME 88.5 fl (80.0-96.0); MONO % 8.3 % (0.0-5.0); NEUTROPHILS # 9.2 K/mm3 (1.8-7.7); NEUTROPHILS % 77.4 % (36.0-66.0); PLATELET COUNT, AUTOMATED 482 k/mm3 (150-450); RED CELL DISTRIBUTION WIDTH 13.3 % (11.5-14.5); WHITE BLOOD COUNT 11.9 K/mm3 (4.0-10.0)
[2016-06-04] MEDS ORDERED: MORPHINE 2 MG/ML 1ML SYRINGE As Ordered ONE (09:28)
[2016-06-04 09:29] LABS: ALBUMIN 2.2 GM/DL (3.2-5.2); ALBUMIN/GLOBULIN RATIO 0.54 (1.00-1.93); ALKALINE PHOSPHATASE 94 U/L (45-117); ALT/SGPT 16 U/L (12-78); ANION GAP 10 MEQ/L (8-16); AST/SGOT 29 U/L (15-37); BILIRUBIN,TOTAL 0.5 MG/DL (0.2-1.0); BLOOD UREA NITROGEN 10 MG/DL (7-18); CALCIUM LEVEL 9.3 MG/DL (8.5-10.1); CARBON DIOXIDE LEVEL 32 MEQ/L (21-32); CHLORIDE LEVEL 93 MEQ/L (98-107); GLOMERULAR FILTRATION RATE > 60.0 (>56); GLUCOSE, FASTING 108 MG/DL (70-105); POTASSIUM SERUM 3.6 MEQ/L (3.5-5.1); SODIUM LEVEL 135 MEQ/L (136-145); TOTAL PROTEIN 6.3 GM/DL (6.4-8.2)
[2016-06-04] MEDS ORDERED: SLF 3 ML SYR IV PRN (14:45)
--- NOTE | 2016-06-04 16:19 | IPN ---
DATE: 06/04/2016 SUBJECTIVE: Patient is seen and examined in the room today. Patient is currently sedated with Ativan and patient has been on increased dose of pain medication. Yesterday patient was weaned off the Precedex drip and in the evening time, patient is alert and oriented times three, no sign of agitation, no sign of tremor, and patient's vital signs were within normal range, and patient actually enjoyed having Easter dinner in the room with , stayed late in the room yesterday night. Per and nursing staff, patient started having delirium and abnormal behavior around 9:30. Multiple doses of Ativan have been given to the patient to control patient's recurrence of delirium. While under the Ativan effect, patient showed signs of increased pain, therefore IV morphine was adjusted. I talked to patient's this morning. She is very upset about the recurrence of the delirium. She is having a difficult time trying to work through the whole process and she is trying to stay strong, however she has uncontrolled anxiety and fear, and she became very tearful near the end of our discussion. Per patient's , usually patient drinks seven beers a day so he can maintain his mental status to take care of daily jobs. However, for the past month or so, patient started having worsening vertebral pain and she is not sure anymore if he has increased the amount of alcohol consumption. She stated, at the time, patient also tried to quit smoking, therefore she is not surprised if the amount of alcohol consumption had significantly increased. OBJECTIVE: VITAL SIGNS: Temperature 99.6, pulse 120, respirations 26, blood pressure 114/69, pulse oximetry 95% with 6 liters nasal cannula. GENERAL: Patient is sedated. Patient is not alert and oriented, not able to follow commands. CARDIOVASCULAR: Tachycardia, positive S1, S2. LUNGS: Diminished breath sounds on the left lung, poor respiratory effort on the right lung. I could not appreciate any wheezes. ABDOMEN: Soft, nontender, nondistended. Bowel sounds present. EXTREMITIES: No edema. No sign of cyanosis. LABORATORY DATA: WBC 11.9, hemoglobin 10.9, hematocrit 32.8, platelet count 482. Sodium 135, potassium 3.6, chloride 93, carbon dioxide 32, BUN 10, creatinine 0.4, GFR greater than 60, fasting glucose 108, calcium 9.3, total protein 0.5, AST 29, ALT 16, alkaline phosphatase 94, total protein 6.3, albumin 2.2. ASSESSMENT AND PLAN: 1. Recurrence of delirium. Previously patient was on Precedex drip for patient's delirium tremens. Patient's condition was improving with weaning of the Precedex yesterday, however there was recurrence of the delirium. Patient has been placed back on sedation from benzodiazepine. Patient does have visible signs of distress from the pain. Patient's pain medication is also adjusted. MRI of the brain with and without contrast was ordered. However, patient's , the healthcare proxy, is concerned about patient's current situation and she would rather postpone the MRI. 2. Pulmonary embolus (PE). Patient is on heparin drip. Patient is continued to be monitored on telemetry. 3. History of alcohol abuse. On folic acid, thiamine, and multivitamin. 4. Left pleural effusion. There was pleurocentesis originally planned for today because of patient's improving mental status, however, currently patient's mentation is getting progressively worse. Will continue to monitor. When appropriate time, patient will proceed with tissue diagnosis for the further workup. 5. Imaging studies suggest metastatic disease. Patient is DO NOT RESUSCITATE/DO NOT INTUBATE. Medical Orders for Life-Sustaining Treatment (MOLST) form is obtained from patient's , patient's healthcare proxy, when patient is under sedation. 6. History of chronic obstructive pulmonary disease (COPD). Continue breathing treatment as needed. 7. Deep venous thrombosis (DVT) prophylaxis. Patient is currently on heparin drip.
[2016-06-04] MEDS: NORCO, ANEXSIA 5/325MG TABLET (HYDROcodone/ACETAMINOPHEN) PO PRN ×2 (16:37→22:43)
[2016-06-04] MEDS: HEPARIN DRIP 25,000 UNITS in APPROPRIATE DILUENT 1 EA IV SCH (16:39)
[2016-06-04] MEDS: FOLIC ACID 1 MG TAB PO SCH (20:18)
[2016-06-04] MEDS: SLF 3 ML SYR IV SCH (21:11)
[2016-06-05] VITALS: BP 128/97
[2016-06-05] MEDS: LORazepam 2 MG/ML VIAL (J2060) IV PRN ×5 (01:23→20:23)
[2016-06-05] MEDS: IPRATROPIUM 0.5MG/ALBUTEROL 2.5MG INH SOL UD 3ML (DUONEB)(J7620) NEB SCH ×4 (02:00→23:47)
[2016-06-05 04:00] VITALS: BP 125/83
[2016-06-05] MEDS: HEPARIN DRIP 25,000 UNITS in APPROPRIATE DILUENT 1 EA IV SCH ×2 (04:19→16:37)
[2016-06-05 05:11] LABS: BASO # 0.1 K/mm3 (0.0-0.2); BASO % 0.5 % (0.0-1.0); EOS # 0.7 K/mm3 (0.0-0.50); EOS % 5.8 % (0.0-3.0); LARGE UNSTAINED CELL # 0.3 K/mm3 (0.0-0.4); LARGE UNSTAINED CELL % 2.4 % (0.0-4.0); LYMPH # 1.7 K/mm3 (1.5-4.5); LYMPH % 13.5 % (24.0-44.0); MEAN CORPUSCULAR HEMOGLOBIN 29.1 pg (27.0-33.0); MEAN CORPUSCULAR HGB CONC 32.1 g/dl (32.0-36.5); MEAN CORPUSCULAR VOLUME 90.7 fl (80.0-96.0); MONO # 1.1 K/mm3 (0.0-0.8); MONO % 8.6 % (0.0-5.0); NEUTROPHILS # 8.6 K/mm3 (1.8-7.7); NEUTROPHILS % 69.2 % (36.0-66.0); PLATELET COUNT, AUTOMATED 581 k/mm3 (150-450); RED CELL DISTRIBUTION WIDTH 13.3 % (11.5-14.5); WHITE BLOOD COUNT 12.4 K/mm3 (4.0-10.0)
[2016-06-05 05:25] LABS: ALBUMIN 2.2 GM/DL (3.2-5.2); ALBUMIN/GLOBULIN RATIO 0.52 (1.00-1.93); ALKALINE PHOSPHATASE 94 U/L (45-117); ALT/SGPT 14 U/L (12-78); ANION GAP 8 MEQ/L (8-16); AST/SGOT 25 U/L (15-37); BILIRUBIN,TOTAL 0.4 MG/DL (0.2-1.0); BLOOD UREA NITROGEN 10 MG/DL (7-18); CALCIUM LEVEL 8.8 MG/DL (8.5-10.1); CARBON DIOXIDE LEVEL 33 MEQ/L (21-32); CHLORIDE LEVEL 94 MEQ/L (98-107); CREATININE FOR GFR 0.43 MG/DL (0.70-1.30); GLOMERULAR FILTRATION RATE > 60.0 (>56); GLUCOSE, FASTING 100 MG/DL (70-105); POTASSIUM SERUM 3.7 MEQ/L (3.5-5.1); SODIUM LEVEL 135 MEQ/L (136-145); TOTAL PROTEIN 6.4 GM/DL (6.4-8.2)
[2016-06-05] MEDS: SLF 3 ML SYR IV SCH ×3 (05:27→21:13)
[2016-06-05] MEDS: OXAZEPAM 10 MG CAP PO SCH ×4 (05:27→23:19)
[2016-06-05] MEDS: DOCUSATE SODIUM 100 MG CAP PO SCH ×2 (07:46→20:23)
[2016-06-05] MEDS: THIAMINE 100 MG TAB PO SCH (07:47)
[2016-06-05] MEDS: CYCLOBENZAPRINE 10 MG TAB PO SCH ×3 (07:47→20:24)
[2016-06-05] MEDS: MULTIVITAMINS/MINERALS THERAP 1 TAB PO SCH (07:47)
[2016-06-05] MEDS: MORPHINE 2 MG/ML 1ML SYRINGE IV PRN ×5 (07:48→18:09)
[2016-06-05 08:00] VITALS: BP 140/82
--- NOTE | 2016-06-05 08:10 | REP ---
Clinical: Effusion. Comparison: 06/03/2016. Findings: [id number] left pleural effusion and left-sided atelectasis is similar to prior examination. The right hemithorax appears relatively clear. Impression: Rzezmuwh-sb-[id number] left pleural effusion with associated atelectasis similar to prior examination. Signed by Giorgio Randall MD 06/05/2016 08:02 A
[2016-06-05 12:00] VITALS: BP 116/75
[2016-06-05] MEDS: FORMOTEROL FUMARATE 20 MCG/2 ML INHALATION SOLUTION (PERFOROMIST) INH SCH ×2 (12:47→19:27)
[2016-06-05] MEDS: BUDESONIDE 0.5 MG/2 ML INHALATION SUSPENSION INH SCH ×2 (12:47→19:27)
[2016-06-05] MEDS ORDERED: HALOPERIDOL 5 MG/ML VIAL (J1630) IM ONE (13:00)
--- NOTE | 2016-06-05 13:05 | REP ---
MRI BRAIN WITHOUT AND WITH CONTRAST: HISTORY: Metastases. The examination is limited secondary to motion. A small focus of increased signal intensity on T2-weighted images is present in the right frontal lobe. There is a 3 mm focus of enhancement. There is no intraparenchymal hemorrhage, infarct, or midline shift. The ventricular system is normal in appearance. There is no extracerebral collection. IMPRESSION: Very limited examination demonstrating a small 3 mm enhancing lesion in the right frontal lobe. Signed by Laci Bermeo MD 06/05/2016 01:17 P
[2016-06-05 16:00] VITALS: BP 148/86
--- NOTE | 2016-06-05 16:01 | IPNPDOC ---
Text Note Date of Service The patient was seen on 06/05/16. NOTE Subjective: Pt more awake and alert this am. I have discussed all his diagnoses with him and his , and the patient would like to proceed with further investigation of this mass, as well as a thoracentesis. He has been very tremulous and agitated, despite Ativan/Haldol/serax. Patient did go down for an MRI brain however was very limited. He was unable to sit still for thoracentesis, despite being medicated. Objective: Vitals: (see below) General: No acute distress, laying comfortably in bed. HEENT: Moist mucous membranes. Neck: No JVD or lymphadenopathy Cardiac: Tachycardic, No murmurs Pulm: Diminished breath sounds at the bases b/l. No wheezing, rhonchi Abd: NT/ND + BS Ext: No edema or cyanosis Cranial nerve II through XII intact. Following commands moving all extremities. 5-5 strength in all extremities. Labs (see below) Images: Assessment/Plan 1. Metastatic disease, with likely pulmonary primary, however no biopsy. There has been repeated attempts to adequately sedate the patient for further imaging as well as thoracentesis. We'll need to discuss sedation with anesthesia as the next step to further obtain workup. 2. Acute pulmonary embolism, likely secondary to metastatic disease- on heparin drip. Echocardiogram pending to rule out RV strain. Pulmonary on board. 3. 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 Has been evaluated by orthopedics. Brace has been ordered. We'll ultimately need cancer diagnosis prior to radiation therapy for palliative care. 4. Extensive tobacco and alcohol use 5. Recent DT from alcohol withdrawal, status post precedex drip. On Serax and Ativan. 6. ? Metastatic lesion in the frontal lobe versus vascular lesion- discussed with radiologist, who recommends CT of the head. 7. Large left pleural effusion- ? paraneoplastic. Attempt for this thoracentesis was made today, however patient was restless, despite being sedated. DVT prophy: Heparin drip Very bad prognosis. DNR/DNI. VS,Fishbone, I+O VS, Fishbone, I+O Laboratory Tests 06/05/16 04:41 Calcium Level 8.8, Aspartate Amino Transf (AST/SGOT) 25, Alanine Aminotransferase (ALT/SGPT) 14, Lactate Dehydrogenase 603 H, Alkaline Phosphatase 94, Total Bilirubin 0.4, Total Protein 6.4, Albumin 2.2 L, Red Blood Count 3.91 L, Mean Corpuscular Volume 90.7, Mean Corpuscular Hemoglobin 29.1, Mean Corpuscular Hemoglobin Concent 32.1, Red Cell Distribution Width 13.3 , Neutrophils (%) (Auto) 69.2 H, Lymphocytes (%) (Auto) 13.5 L, Monocytes (%) ( Auto) 8.6 H, Eosinophils (%) (Auto) 5.8 H, Basophils (%) (Auto) 0.5, Neutrophils # (Auto) 8.6 H, Lymphocytes # (Auto) 1.7, Monocytes # (Auto) 1.1 H, Eosinophils # (Auto) 0.7 H, Basophils # (Auto) 0.1 Vital Signs Date Time Temp Pulse Resp B/P Pulse Ox O2 Delivery O2 Flow Rate FiO2 06/05/16 15:49 20 06/05/16 12:00 Nasal Cannula 6.0 06/05/16 12:00 97.6 129 116/75 91 06/02/16 12:13 97 I&O- Last 24 Hours up to 6 AM 06/05/16 06:00 Intake Total 710 ml Output Total 225 ml Balance 485 ml DIANNA TAVAREZ MD Jun 05, 2016 16:00
[2016-06-05 20:00] VITALS: BP 122/86
[2016-06-05] MEDS: FOLIC ACID 1 MG TAB PO SCH (20:23)
[2016-06-05] MEDS ORDERED: FUROSEMIDE 40 MG/4 ML VIAL (J1940) IV ONE (20:30)
[2016-06-05] MEDS ORDERED: LORazepam 2 MG/ML VIAL (J2060) IV PRN (22:30)
--- NOTE | 2016-06-05 23:22 | ECHO ---
DATE OF PROCEDURE: 06/05/2016 REFERRING PROVIDER: Rolando Ryan MD PATIENT LOCATION: Room 3204. REASON FOR ECHOCARDIOGRAM: Pulmonary embolism. 2D MEASUREMENTS: IVS: 1.0 cm LV: 4.3 cm LVPW: 1.0 cm LA: 3.5 cm Aorta: 3.1 cm IVC: 1.9 cm DOPPLER MEASUREMENTS: Peak velocity across the aortic valve: 1.2 m/s Peak velocity across the LVOT: 1.0 m/s Mitral E: 1.1 Maximum tricuspid valve velocity: 3.5 m/s 2D COMMENTS: 1. Technically very limited study due to poor acoustic window. Patient also was reported to be not cooperative during the test. 2. The left ventricular size is normal as well as left ventricular wall thickness and systolic function. The estimated global left ventricular systolic function was 65%. 3. Normal left atrium. The right atrium and the right ventricle appeared to be normal in limited views. 4. The atrial septum also appeared to be normal in limited views without evidence of defect or shunt. 5. Normal aortic root. 6. Pleural effusion was noted, mainly on left and possibly large. There was trace to small pericardial effusion. Fibrinous material noted, and that seems to be in the pericardial fluid. There is no evidence of cardiac tamponade. 7. The aortic valve, mitral valve, and tricuspid valve appeared to be normal. The pulmonic valve and proximal pulmonary artery branches were not well visualized. 8. The inferior vena cava was normal in size; central venous pressure is probably normal. DOPPLER: No significant Doppler abnormalities detected but mild tricuspid regurgitation. The calculated pulmonary artery systolic pressure varies between 50 to 60 mmHg. IMPRESSION: 1. Technically limited study due to poor acoustic window. 2. Normal global left ventricular systolic function. 3. Mild tricuspid regurgitation with moderately severe pulmonary hypertension, probably overestimated. 4. Large pleural effusion noted, left. Pericardial effusion was noted, probably small with evidence of a significant amount of fibrinous material. 5. Patient was noted to be tachycardic during the test with a heart rate that varies between 120 and 130 beats per minute.
[2016-06-06] VITALS: BP 134/88
[2016-06-06] MEDS: LORazepam 2 MG/ML VIAL (J2060) IV PRN ×5 (00:01→06:15)
[2016-06-06] MEDS: MORPHINE 2 MG/ML 1ML SYRINGE IV PRN ×3 (00:27→19:37)
[2016-06-06 04:00] VITALS: BP 148/95
[2016-06-06] MEDS: OXAZEPAM 10 MG CAP PO SCH ×2 (05:00→12:08)
[2016-06-06] MEDS: SLF 3 ML SYR IV SCH ×3 (05:01→20:47)
[2016-06-06] MEDS: HEPARIN DRIP 25,000 UNITS in APPROPRIATE DILUENT 1 EA IV SCH ×2 (05:02→17:22)
[2016-06-06 05:20] LABS: MEAN CORPUSCULAR HEMOGLOBIN 28.5 pg (27.0-33.0); MEAN CORPUSCULAR HGB CONC 31.7 g/dl (32.0-36.5); RED CELL DISTRIBUTION WIDTH 13.2 % (11.5-14.5); WHITE BLOOD COUNT 13.1 K/mm3 (4.0-10.0)
[2016-06-06 05:24] LABS: INR 1.11
[2016-06-06 05:30] LABS: ALBUMIN 2.3 GM/DL (3.2-5.2); ANION GAP 9 MEQ/L (8-16); BLOOD UREA NITROGEN 13 MG/DL (7-18); CALCIUM LEVEL 9.5 MG/DL (8.5-10.1); CARBON DIOXIDE LEVEL 35 MEQ/L (21-32); CHLORIDE LEVEL 91 MEQ/L (98-107); CREATININE FOR GFR 0.47 MG/DL (0.70-1.30); GLOMERULAR FILTRATION RATE > 60.0 (>56); GLUCOSE, FASTING 113 MG/DL (70-105); PHOSPHORUS LEVEL 4.6 MG/DL (2.5-4.9); POTASSIUM SERUM 3.7 MEQ/L (3.5-5.1); SODIUM LEVEL 135 MEQ/L (136-145)
[2016-06-06] MEDS: HEPARIN SOD (PORCINE) 5000 UNITS/ML VIAL IV PRN (05:40)
[2016-06-06] MEDS ORDERED: GASTROGRAFIN SOLUTION 30ML PO ONE ×2 (06:30→08:30)
[2016-06-06] MEDS ORDERED: GASTROGRAFIN SOLUTION 30ML (Q9963) PO ONE ×2 (07:00→09:00)
--- NOTE | 2016-06-06 07:12 | EEG ---
DATE OF PROCEDURE: 06/04/2016 REFERRING PHYSICIAN: Dr. Holly Bruno DIAGNOSIS: Altered mental status. EEG NUMBER: HISTORY: The patient is a 55-year-old male who was admitted at [facility] due to pulmonary embolism, spinal cord compression, alcohol abuse, etc. This EEG was done to rule out epileptic potential. The patient was given Ativan and morphine right before this EEG. He is currently taking Ativan, morphine, Prilosec, thiamine, Flexeril, heparin, etc. TECHNICAL DESCRIPTION: This digital EEG was recorded by 21 scalp, ear and two EKG electrodes and was reviewed in bipolar and referential montages following reformatting in 10-20 international electrode placement system. INTERPRETATION: The patient was noted to be in awake and drowsy states during this EEG. In the beginning of recording, background rhythm was obscured by constant motion artifact. Background rhythm consisted of 7 Hz theta activity measuring 15-40 microvolts in amplitude. Stage I and II sleep were reviewed and were symmetric bilaterally. Hyperventilation could not be performed. Photic stimulation remained unremarkable. EKG revealed sinus tachycardia. No focal, lateralizing or epileptiform abnormalities were seen. No clinical or electrographic seizures were recorded. CONCLUSION: This EEG in awake, drowsy states, stage I and II sleep is mildly abnormal due to presence of mild generalized slowing consistent with nonspecific diffuse cerebral dysfunction such as seen in encephalopathy due to multiple potential causes including toxic, metabolic, medication related, infectious, autoimmune, or multifocal structural abnormalities. Clinical correlation is recommended.
[2016-06-06 08:00] VITALS: BP 125/79
[2016-06-06] MEDS: IPRATROPIUM 0.5MG/ALBUTEROL 2.5MG INH SOL UD 3ML (DUONEB)(J7620) NEB SCH ×2 (08:00→15:34)
[2016-06-06] MEDS: FORMOTEROL FUMARATE 20 MCG/2 ML INHALATION SOLUTION (PERFOROMIST) INH SCH ×2 (08:19→21:58)
[2016-06-06] MEDS: BUDESONIDE 0.5 MG/2 ML INHALATION SUSPENSION INH SCH ×2 (08:19→21:58)
[2016-06-06 08:44] LABS: ABG BASE EXCESS 5.5 (-2.0-2.0); ABG HCO3 32.5 MEQ/L (22.0-26.0); ABG PARTIAL PRESSURE CO2 58.9 mmHg (35.0-45.0); ABG PARTIAL PRESSURE O2 78.1 mmHg (75.0-100.0); ABG STANDARD HCO3 29.4 MEQ/L (22.0-26.0); ABG TOTAL CO2 34.3 MEQ/L (22.0-29.0)
[2016-06-06] MEDS ORDERED: FUROSEMIDE 40 MG/4 ML VIAL (J1940) IV SCH (09:00)
--- NOTE | 2016-06-06 09:12 | ECGEPIP ---
Stationary ECG Study [facility] Test Date: 2016-06-06 Pat Name: SAMY GARLAND Department: Room: [place] [address] Gender: M Can Runner: CHARLEY : 1960 Requested By: DIANNA TAVAREZ Order Number: [id number] Reading MD: Francisco Javier Albert Measurements Intervals [place] Rate: 137 P: 56 ND: 158 QRS: 43 QRSD: 93 T: 68 QT: 284 QTc: 429 Interpretive Statements SINUS TACHYCARDIA WITH FREQUENT VENTRICULAR PREMATURE COMPLEXES LOW QRS VOLTAGE IN PRECORDIAL LEADS Rate increased from tracing done 05-30-16 Baseline artifact Electronically Signed On 06-06-2016 9:11:44 EDT by Francisco Javier Albert
[2016-06-06] MEDS: DOCUSATE SODIUM 100 MG CAP PO SCH ×2 (09:34→20:47)
[2016-06-06] MEDS: HALOPERIDOL 5 MG/ML VIAL (J1630) IM PRN ×4 (09:34→22:12)
[2016-06-06] MEDS: MULTIVITAMINS/MINERALS THERAP 1 TAB PO SCH (09:34)
[2016-06-06] MEDS: CYCLOBENZAPRINE 10 MG TAB PO SCH ×3 (09:34→20:47)
[2016-06-06] MEDS: THIAMINE 100 MG TAB PO SCH (09:34)
[2016-06-06] MEDS: PIPERACILLIN/TAZOBACTAM SOD 3.375 GM in D5W MINI-BAG PLUS 50 ML IV SCH ×2 (10:36→17:21)
[2016-06-06] MEDS ORDERED: ISOVUE-370 76% 100ML VIAL (Q9967) As Ordered ONE (10:37)
--- NOTE | 2016-06-06 10:59 | REP ---
CT HEAD WITHOUT CONTRAST: HISTORY: Metastasis. COMPARISON: MR 06/05/2016. There is no intraparenchymal hemorrhage, mass or midline shift. The ventricular system is normal in appearance. The cortical sulci at vertex are dilated consistent with minimal volume loss. There is no extracerebral collection. The visualized sinuses are clear. IMPRESSION: Minimal volume loss. Metastases cannot be excluded with this examination. Signed by Laci Bermeo MD 06/06/2016 11:06 A
--- NOTE | 2016-06-06 11:15 | REP ---
CT ANGIO HEAD: HISTORY: Metastasis. CONTRAST: Isovue-370, 100 mL. COMPARISON: MR, 06/05/2016. The examination is limited secondary to patient motion and scan trigger interruption. There is no definite aneurysm or arteriovenous malformation. Atherosclerotic calcification is present in the cavernous right internal carotid artery. There is no significant stenosis. Major intracranial vessels are patent. A 3 mm focus of enhancement is present in the medial right frontal lobe. Several small blood vessels are present adjacent to the focus of enhancement. IMPRESSION: Limited examination demonstrating a 3 mm focus of enhancement in the medial right frontal lobe. This most likely represents a small metastasis, however, the possibility of a developmental venous anomaly cannot be excluded. A repeat MR examination with contrast is recommended for further evaluation. Signed by Laci Bermeo MD 06/06/2016 11:27 A
[2016-06-06] MEDS: VANCOMYCIN HCL 1,000 MG, VIAL MATE ADAPTER 1 EACH in D5W 250 ML IV SCH ×2 (11:30→18:09)
[2016-06-06 12:00] VITALS: BP 117/78
[2016-06-06] MEDS ORDERED: VANCOMYCIN HCL 500 MG in D5W MINI-BAG PLUS 100 ML IV ONE (12:00)
--- NOTE | 2016-06-06 13:11 | IPNPDOC ---
Text Note Date of Service The patient was seen on 06/06/16. NOTE Subjective: Pt was drowsy today, although he has been restless last night. I had an extensive conversation with and brother today. Pt was unable to sit still for MRI, and it would be difficult to obtain a thoracentesis. I have called anesthesia to help coordinate with IR in the OR to assist with getting a thoracentesis tomorrow. Objective: Vitals: (see below) General: No acute distress, laying comfortably in bed. HEENT: Moist mucous membranes. Neck: No JVD or lymphadenopathy Cardiac: Tachycardic, No murmurs Pulm: Diminished breath sounds at the bases b/l. No wheezing, rhonchi Abd: NT/ND + BS Ext: No edema or cyanosis Cranial nerve II through XII intact. Following commands moving all extremities. 5-5 strength in all extremities. Labs (see below) Images: CTA Head 06/06/16 IMPRESSION: Limited examination demonstrating a 3 mm focus of enhancement in the medial right frontal lobe. This most likely represents a small metastasis, however, the possibility of a developmental venous anomaly cannot be excluded. A repeat MR examination with contrast is recommended for further evaluation. MRA Brain 06/06/16 IMPRESSION: Very limited examination demonstrating a small 3 mm enhancing lesion in the right frontal lobe. Assessment/Plan 1. Metabolic encephalopathy - likely multifactorial. It appears that the patient's is very agitated and has been requiring benzodiazepines, which may be contributing to his confusion. We'll wean off Serax, and discontinue Ativan. Haldol has been ordered when necessary. Patient also has a right frontal lesion which likely represents a metastasis. Looking back at the patient's CAT scan findings prior to admission, the patient did have notable consolidation on a CT chest, and in correlation with his tachycardia, hypoxia, and leukocytosis, will start patient on vancomycin and Zosyn for possible sepsis from pneumonia. His EEG is negative for seizures. Neurology has been consulted as well. 2. Acute pulmonary embolism, likely secondary to metastatic disease- on heparin drip. Echocardiogram with no RV strain. Pulmonary on board. 3. 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 Has been evaluated by orthopedics. Brace has been ordered. We'll ultimately need cancer diagnosis prior to radiation therapy for palliative care. 4. Extensive tobacco and alcohol use 5. Recent DT from alcohol withdrawal, status post precedex drip. On Serax and Ativan. 6. ? Metastatic lesion in the frontal lobe versus vascular lesion- discussed with radiologist, who recommends CT of the head. 7. Large left pleural effusion- ?paraneoplastic. Have spoken to anesthesia will assist IR and obtaining a thoracentesis in the OR tomorrow. DVT prophy: Heparin drip Very bad prognosis. Family Aware. Will attempt thoracentesis tomorrow, followed by repeat CT chest after thoracentesis, and a lung biopsy for diagnosis. Family is aware that the patient is critical, and that his prognosis is very poor. They are prepared to entertaining comfort measures if he continues to clinically decline given his diffuse metastasis and extensive acute diagnoses. DNR/DNI. VS,Malcolmbone, I+O VS, Fishbone, I+O Laboratory Tests 06/06/16 04:54 Anion Gap 9, Red Blood Count 4.18 L, Mean Corpuscular Volume 90.0, Mean Corpuscular Hemoglobin 28.5, Mean Corpuscular Hemoglobin Concent 31.7 L, Red Cell Distribution Width 13.2 Vital Signs Date Time Temp Pulse Resp B/P Pulse Ox O2 Delivery O2 Flow Rate FiO2 06/06/16 12:00 99.3 140 40 117/78 93 High Flow Cannula 8.0 06/02/16 12:13 97 I&O- Last 24 Hours up to 6 AM 06/06/16 06:00 Intake Total 340 ml Output Total 950 ml Balance -610 ml DIANNA TAVAREZ MD Jun 06, 2016 13:11
--- NOTE | 2016-06-06 14:20 | PHACANCOPD ---
PHARMACY VANCOMYCIN DOSING Pt Demographics Demographics Patient Age:55 , Weight:77.400 , Gender: male Adjusted Body Weight Date: 06/06/16, Adjusted Body Weight: Kg Events Past 24 Hours Events Past 24 Hours: YES: Elevation in WBC, NO: Change in CrCl, Dialysis, Diuretic Therapy, Fever, Other, Pending Diagnostics, Pending Procedures Vancomycin Vancomycin indication: sepsis PNA Vancomycin Target Ranges: 15-20 mcg/ml Vancomycin Load Y/N: Yes Load Dose Date Time Vancomycin Load Dose: 1500mg Date: 06/06 Time: 1100 Vancomycin Dose Date: 06/06/16. Current Vancomycin Dose: [1gm IV q8h@11] Intermittent Dosing?: No Labs Labs Item Value Date Time Creatinine 0.43 MG/DL L 06/05/16 044 Creatinine 0.47 MG/DL L 06/06/16 0454 Item Value Date Time White Blood Count 11.9 K/mm3 H 06/04/16 0811 White Blood Count 12.4 K/mm3 H 06/05/16 0441 White Blood Count 13.1 K/mm3 H 06/06/16 0454 Vital Signs Label Value Date Time Patient Temperature 99.3 degrees F 06/06/16 1200 Temperature Source Temporal 06/06/16 1200 Micro Microbiology 05/31/16 Urine Culture - Final, Complete Creatinine Clearance Date:06/06/16. Creatinine Clearance: . Assessment and Plan Maintaining Current Dose?: Yes Reason for dose change: No Dose Change Pharmacist Note Pharmacist Note Date: 06/06/16. Pharmacist note:Patient was started on Vancomycin and Zosyn for possible Pneumonia. He has no history of MRSA or Vancomycin use at our facility. He was loaded with 1500mg of Vancomycin and was continued on Vancomycin 1gm IV q8h. We will continue to monitor and make adjustments as necessary. HENRIETTA SANCHEZ [facility]ARM[facility] Jun 06, 2016 14:20
[2016-06-06] MEDS ORDERED: risperiDONE 0.5 MG TAB PO ONE ×2 (15:30→23:00)
[2016-06-06] MEDS ORDERED: HALOPERIDOL 2 MG TAB PO ONE (15:30)
[2016-06-06] MEDS ORDERED: HALOPERIDOL 1 MG TAB PO ONE (15:30)
[2016-06-06 16:00] VITALS: BP 133/88
[2016-06-06 20:00] VITALS: BP 126/86
[2016-06-06] MEDS: FOLIC ACID 1 MG TAB PO SCH (20:47)
[2016-06-06] MEDS ORDERED: OXAZEPAM 10 MG CAP PO SCH (21:00)
[2016-06-07] VITALS: BP 133/71
[2016-06-07] MEDS: PIPERACILLIN/TAZOBACTAM SOD 3.375 GM in D5W MINI-BAG PLUS 50 ML IV SCH ×3 (01:44→17:33)
[2016-06-07] MEDS ORDERED: hydrOXYzine 25 MG TAB PO ONE (02:15)
[2016-06-07] MEDS: VANCOMYCIN HCL 1,000 MG, VIAL MATE ADAPTER 1 EACH in D5W 250 ML IV SCH ×2 (02:47→11:09)
[2016-06-07 04:00] VITALS: BP 130/87
[2016-06-07] MEDS: HEPARIN DRIP 25,000 UNITS in APPROPRIATE DILUENT 1 EA IV SCH ×2 (04:42→15:43)
[2016-06-07] MEDS ORDERED: LORazepam 2 MG/ML VIAL (J2060) IV PRN (04:45)
[2016-06-07] MEDS ORDERED: LORazepam 2 MG/ML VIAL (J2060) As Ordered ONE (04:49)
[2016-06-07 05:05] LABS: MEAN CORPUSCULAR HEMOGLOBIN 28.3 pg (27.0-33.0); MEAN CORPUSCULAR HGB CONC 31.4 g/dl (32.0-36.5); MEAN CORPUSCULAR VOLUME 90.3 fl (80.0-96.0); RED CELL DISTRIBUTION WIDTH 13.2 % (11.5-14.5); WHITE BLOOD COUNT 15.4 K/mm3 (4.0-10.0)
[2016-06-07 05:19] LABS: INR 1.13
[2016-06-07 05:21] LABS: ALBUMIN 2.3 GM/DL (3.2-5.2); BLOOD UREA NITROGEN 13 MG/DL (7-18); CALCIUM LEVEL 9.3 MG/DL (8.5-10.1); CARBON DIOXIDE LEVEL 38 MEQ/L (21-32); CHLORIDE LEVEL 89 MEQ/L (98-107); CREATININE FOR GFR 0.52 MG/DL (0.70-1.30); GLUCOSE, FASTING 133 MG/DL (70-105); PHOSPHORUS LEVEL 4.3 MG/DL (2.5-4.9); POTASSIUM SERUM 3.6 MEQ/L (3.5-5.1)
[2016-06-07] MEDS: SLF 3 ML SYR IV SCH ×3 (05:30→21:44)
--- NOTE | 2016-06-07 07:33 | CR ---
DATE OF CONSULTATION: 06/06/2016 REFERRING PHYSICIAN: Dr. Ryan REASON FOR CONSULTATION: Altered mental status. HISTORY OF PRESENT ILLNESS: Giorgio Burton is a 55-year-old man with history of chronic obstructive pulmonary disease (COPD) who was admitted at [facility] due to acute shortness of breath and chest pain and was found to have pulmonary embolism. He also had altered mental status, which was thought to be related to alcohol withdrawal and delirium tremons. His mental status improved when he was on Ativan and Serax. His mental status again declined and he remains confused. Patient also complained of back pain and further workup revealed that he has multilevel metastatic disease throughout his spine. He had compression fracture and severe stenosis and possible cord compression at T10 level. He was evaluated by orthopedic surgery who recommended a brace for his compression fracture in thoracic spine. His EEG revealed mild encephalopathy. His MRI scan of brain, which was affected by motion artifact, and later CT scan of head showed a contrast enhancing 3 mm likely metastatic lesion in his right frontal lobe. The patient's is currently in process of making a decision about his further care. He was also seen by radiation oncology. A thoracentesis is being planned due to his pleural effusion and possible underlying lung mass. PAST MEDICAL HISTORY: 1. COPD. 2. Alcoholism. ALLERGIES: None. HOME MEDICATIONS: - Breo Ellipta - Vicodin 5/325 mg by mouth every 4 hours as needed - Flexeril 10 mg by mouth three times a day as needed - Ventolin 2 puffs inhalation every 4 hours as needed - albuterol inhaler - Prilosec 40 mg by mouth daily SOCIAL HISTORY: He used to smoke 1-1/2 pack per day. He quit 1 month ago. He drinks 6-7 beers a day. FAMILY HISTORY: Noncontributory. REVIEW OF SYSTEMS: All systems were reviewed and were found to be noncontributory except as mentioned in history present illness. PHYSICAL EXAMINATION: Pulse 140, respiratory rate 40, blood pressure 117/78, temperature 99.3, and he is on nasal cannula oxygen at 8 liters per minute. Heart: Regular rate and rhythm. Lungs: He has rales in his bilateral lungs. No pedal edema. He has decreased peripheral pulses. Ear, nose, throat examination is within normal limits. There is no gross musculoskeletal abnormalities. No carotid bruits. He appears confused. He is awake and slightly drowsy. He is able to follow one-step commands. He is able to tell me the year, name of city, state, country and name of president. He thinks it is 05/04/2016 and he is in a [employer]uther[employer] currently. No facial weakness. Tongue and uvula are midline. Extraocular muscles are intact. 5/5 strength in all four extremities. Deep tendon flexes are 1+ throughout. Plantars are downgoing. Sensations could not be tested reliably. He is wearing mittens. There is no clear dysmetria. He is able to do [id number] test reasonably well. Gait could not be tested. DIAGNOSTIC STUDIES: His MRI scan of brain, CT scan of brain with and without contrast were reviewed and showed a 3 mm right frontal lobe suspected metastatic lesion. His MRI and CT scan of spine were reviewed and showed multiple vertebral body metastasis and compression fracture at T10 level with spinal stenosis due to disc and bone fragments. He had metastatic disease at multiple levels of his spine. ASSESSMENT: 1. Altered mental status, which is likely multifactorial from alcohol withdrawal and delirium tremens, which can last for a couple of weeks. 2. Metastatic disease to brain and multilevel vertebral metastatic disease. 3. Severe spinal stenosis and mild spinal cord compression at T10 level. 4. Pulmonary embolism, pleural effusion, suspected lung cancer. PLAN: 1. His overall prognosis is guarded. 2. He was already seen by spine surgery and radiation oncology. 3. Thoracentesis is being considered due to his pleural effusion and possible lung mass. His current functional status likely will make him unable to tolerate radiation and chemotherapy. 4. Continue treatment of alcohol withdrawal and delirium tremens with Serax and as needed Ativan. Haldol 1 or 2 mg intramuscular can be used as needed for any aggressive behavior.
[2016-06-07 08:00] VITALS: BP 144/91
[2016-06-07] MEDS: IPRATROPIUM 0.5MG/ALBUTEROL 2.5MG INH SOL UD 3ML (DUONEB)(J7620) NEB SCH ×4 (08:00→22:06)
--- NOTE | 2016-06-07 08:03 | PHACANCOPD ---
PHARMACY VANCOMYCIN DOSING Pt Demographics Demographics Patient Age:55 , Weight:73.100 , Gender: male Adjusted Body Weight Date: 06/06/16, Adjusted Body Weight: Kg Vancomycin Vancomycin indication: sepsis PNA Vancomycin Target Ranges: 15-20 mcg/ml Vancomycin Load Y/N: Yes Load Dose Date Time Vancomycin Load Dose: 1500mg Date: 06/06 Time: 1100 Vancomycin Dose Date: 06/06/16. Current Vancomycin Dose: [1gm IV q8h@11] Intermittent Dosing?: No Labs Micro Microbiology 05/31/16 Urine Culture - Final, Complete Creatinine Clearance Date:06/06/16. Creatinine Clearance: . Assessment and Plan Maintaining Current Dose?: Yes Reason for dose change: No Dose Change Pharmacist Note Pharmacist Note 06/07/16: I have scheduled a vancomycin trough to be drawn today, 06/07/16 @1000, prior to the 4th dose to ensure adequate levels are being attained. The patient' s scr remains stable, as does his output. WBC remains elevated and is on the upward trend. CRP, RR, and pulse also remain elevated on oxygen support. We will follow-up once trough has resulted, and make dose adjustments as needed. Date: 06/06/16. Pharmacist note:Patient was started on Vancomycin and Zosyn for possible Pneumonia. He has no history of MRSA or Vancomycin use at our facility. He was loaded with 1500mg of Vancomycin and was continued on Vancomycin 1gm IV q8h. We will continue to monitor and make adjustments as necessary. RUSS [facility]YR [facility] Jun 07, 2016 08:03
[2016-06-07] MEDS: FORMOTEROL FUMARATE 20 MCG/2 ML INHALATION SOLUTION (PERFOROMIST) INH SCH ×2 (08:31→19:28)
[2016-06-07] MEDS: BUDESONIDE 0.5 MG/2 ML INHALATION SUSPENSION INH SCH ×2 (08:31→19:28)
[2016-06-07 08:42] LABS: ANION GAP 6 MEQ/L (8-16); SODIUM LEVEL 133 MEQ/L (136-145)
[2016-06-07] MEDS: DOCUSATE SODIUM 100 MG CAP PO SCH ×2 (09:00→21:00)
[2016-06-07] MEDS: OXAZEPAM 10 MG CAP PO SCH ×3 (09:01→17:32)
[2016-06-07] MEDS: THIAMINE 100 MG TAB PO SCH (09:01)
[2016-06-07] MEDS: CYCLOBENZAPRINE 10 MG TAB PO SCH ×2 (09:01→15:15)
[2016-06-07] MEDS: MULTIVITAMINS/MINERALS THERAP 1 TAB PO SCH (09:01)
[2016-06-07] MEDS: MORPHINE 2 MG/ML 1ML SYRINGE IV PRN ×2 (09:02→21:26)
[2016-06-07] MEDS: risperiDONE 0.5 MG TAB PO SCH (09:02)
[2016-06-07] MEDS: LORazepam 2 MG/ML VIAL (J2060) IV PRN ×3 (09:02→23:17)
[2016-06-07] MEDS: MORPHINE 4 MG/ML 1ML SYRINGE IV PRN ×3 (11:08→19:09)
--- NOTE | 2016-06-07 13:22 | IPNPDOC ---
Text Note Date of Service The patient was seen on 06/07/16. NOTE Subjective: Pt more alert today, although still agitated. I have been having extensive conversations with and brother every day. decided to hold off on thoracentesis as she would like to make pt BOLT [employer]ELER later today after her children arrive. Objective: Vitals: (see below) General: No acute distress, laying comfortably in bed. Oriented to person, ' hospital', and year. HEENT: Moist mucous membranes. Neck: No JVD or lymphadenopathy Cardiac: Tachycardic, No murmurs Pulm: Diminished breath sounds at the bases b/l. No wheezing, rhonchi Abd: NT/ND + BS Ext: No edema or cyanosis Cranial nerve II through XII intact. Following commands moving all extremities. 5-5 strength in all extremities. Negative Babinski. DTR 2+ BLE. Labs (see below) Images: CTA Head 06/06/16 IMPRESSION: Limited examination demonstrating a 3 mm focus of enhancement in the medial right frontal lobe. This most likely represents a small metastasis, however, the possibility of a developmental venous anomaly cannot be excluded. A repeat MR examination with contrast is recommended for further evaluation. MRA Brain 06/06/16 IMPRESSION: Very limited examination demonstrating a small 3 mm enhancing lesion in the right frontal lobe. Assessment/Plan 1. Metabolic encephalopathy - likely multifactorial. It appears that the patient's is very agitated and has been requiring benzodiazepines, which may be contributing to his confusion. OnSerax, and Ativan PRN. Haldol ordered when necessary. Patient also has a right frontal lesion which likely represents a metastasis. Looking back at the patient's CAT scan findings prior to admission , the patient did have notable consolidation on a CT chest, and in correlation with his tachycardia, hypoxia, and leukocytosis, will start patient on vancomycin and Zosyn for possible sepsis from pneumonia. His EEG is negative for seizures. Neurology has been consulted as well, and appreciate Dr. Andujar's input. 2. Acute pulmonary embolism, likely secondary to metastatic disease- on heparin drip. Echocardiogram with no RV strain. Pulmonary on board. 3. 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 Has been evaluated by orthopedics. Brace has been ordered. We'll ultimately need cancer diagnosis prior to radiation therapy for palliative care. Morphine and Percocet PRN pain. 4. Extensive tobacco and alcohol use 5. Recent DT from alcohol withdrawal, status post precedex drip. On Serax and Ativan. 6. ? Metastatic lesion in the frontal lobe versus vascular lesion- discussed with radiologist, who recommends CT of the head. 7. Large left pleural effusion- ? paraneoplastic. 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 DVT prophy: Heparin drip Very bad prognosis. Family Aware. Family is aware that the patient is critical , and that his prognosis is very poor. They are prepared to go with comfort measures if he continues to clinically decline given his diffuse metastasis and extensive acute diagnoses. DNR/DNI. VS,Fishbone, I+O VS, Fishbone, I+O Laboratory Tests 06/07/16 04:54 Anion Gap 6 L, Red Blood Count 4.21 L, Mean Corpuscular Volume 90.3, Mean Corpuscular Hemoglobin 28.3, Mean Corpuscular Hemoglobin Concent 31.4 L, Red Cell Distribution Width 13.2 Vital Signs Date Time Temp Pulse Resp B/P Pulse Ox O2 Delivery O2 Flow Rate FiO2 06/07/16 13:07 20 06/07/16 12:00 119 High Flow Cannula 8.0 06/07/16 08:00 97.1 144/91 94 06/02/16 12:13 97 I&O- Last 24 Hours up to 6 AM 06/07/16 06:00 Intake Total 1904 ml Output Total 1700 ml Balance 204 ml DIANNA TAVAREZ MD Jun 07, 2016 13:22
--- NOTE | 2016-06-07 13:40 | PHACANCOPD ---
PHARMACY VANCOMYCIN DOSING Pt Demographics Demographics Patient Age:55 , Weight:73.100 , Gender: male Adjusted Body Weight Date: 06/06/16, Adjusted Body Weight: Kg Vancomycin Vancomycin indication: sepsis PNA Vancomycin Target Ranges: 15-20 mcg/ml Vancomycin Load Y/N: Yes Load Dose Date Time Vancomycin Load Dose: 1500mg Date: 06/06 Time: 1100 Vancomycin Dose Date: 06/06/16. Current Vancomycin Dose: [1gm IV q8h@11] Intermittent Dosing?: No Labs Micro Microbiology 06/07/16 Blood Culture, Received Pending 06/07/16 Blood Culture, Received Pending 05/31/16 Urine Culture - Final, Complete Creatinine Clearance Date:06/06/16. Creatinine Clearance: . Assessment and Plan Maintaining Current Dose?: No Reason for dose change: Trough too low Pharmacist Note Pharmacist Note 06/07/16: Vancomycin trough today resulted at 10.7mcg/ml. I have increased the vancomycin regimen from 1g IV Q8H to 1250mg IV Q8H starting today at 1900. Scr and output remain stable. WBC, RR, and pulse remain elevated. The patient remains on high flow cannula, and has been mildly febrile within the past 24 hours. A follow-up vancomycin trough has been scheduled for 06/08/16 @1800. We will continue to monitor and make further adjustments if needed. 06/07/16: I have scheduled a vancomycin trough to be drawn today, 06/07/16 @1000, prior to the 4th dose to ensure adequate levels are being attained. The patient' s scr remains stable, as does his output. WBC remains elevated and is on the upward trend. CRP, RR, and pulse also remain elevated on oxygen support. We will follow-up once trough has resulted, and make dose adjustments as needed. Date: 06/06/16. Pharmacist note:Patient was started on Vancomycin and Zosyn for possible Pneumonia. He has no history of MRSA or Vancomycin use at our facility. He was loaded with 1500mg of Vancomycin and was continued on Vancomycin 1gm IV q8h. We will continue to monitor and make adjustments as necessary. RUSS [facility]YR [facility] Jun 07, 2016 13:40
[2016-06-07 16:00] VITALS: BP 119/65
[2016-06-07] MEDS: VANCOMYCIN HCL 1,250 MG in D5W 250 ML IV SCH (18:28)
[2016-06-07] MEDS: FOLIC ACID 1 MG TAB PO SCH (21:00)
[2016-06-07] MEDS ORDERED: D5W/0.45% SODIUM CHLORIDE 1,000 ML IV SCH (21:00)
[2016-06-07 21:34] VITALS: BP 119/77
[2016-06-08 00:30] VITALS: BP 121/78
[2016-06-08] MEDS: MORPHINE 2 MG/ML 1ML SYRINGE IV PRN ×5 (00:57→10:55)
[2016-06-08] MEDS: VANCOMYCIN HCL 1,250 MG in D5W 250 ML IV SCH ×2 (02:19→17:29)
[2016-06-08] MEDS: OXAZEPAM 10 MG CAP PO SCH ×6 (02:19→23:50)
[2016-06-08] MEDS: HEPARIN DRIP 25,000 UNITS in APPROPRIATE DILUENT 1 EA IV SCH (02:52)
[2016-06-08] MEDS: LORazepam 2 MG/ML VIAL (J2060) IV PRN ×5 (03:08→21:21)
[2016-06-08] MEDS: PIPERACILLIN/TAZOBACTAM SOD 3.375 GM in D5W MINI-BAG PLUS 50 ML IV SCH ×2 (03:08→09:46)
[2016-06-08 04:00] VITALS: BP 126/84
[2016-06-08] MEDS: SODIUM CHLORIDE NASAL 0.65% SPRAY BTL (OCEAN) PRN (04:35)
[2016-06-08 05:20] LABS: MEAN CORPUSCULAR HEMOGLOBIN 28.6 pg (27.0-33.0); MEAN CORPUSCULAR HGB CONC 31.6 g/dl (32.0-36.5); MEAN CORPUSCULAR VOLUME 90.4 fl (80.0-96.0); RED CELL DISTRIBUTION WIDTH 13.3 % (11.5-14.5); WHITE BLOOD COUNT 13.5 K/mm3 (4.0-10.0)
[2016-06-08 05:30] LABS: ALBUMIN 2.1 GM/DL (3.2-5.2); ANION GAP 6 MEQ/L (8-16); BLOOD UREA NITROGEN 15 MG/DL (7-18); CALCIUM LEVEL 9.1 MG/DL (8.5-10.1); CARBON DIOXIDE LEVEL 40 MEQ/L (21-32); CHLORIDE LEVEL 87 MEQ/L (98-107); CREATININE FOR GFR 0.71 MG/DL (0.70-1.30); GLOMERULAR FILTRATION RATE > 60.0 (>56); GLUCOSE, FASTING 133 MG/DL (70-105); PHOSPHORUS LEVEL 4.6 MG/DL (2.5-4.9); POTASSIUM SERUM 3.4 MEQ/L (3.5-5.1); SODIUM LEVEL 133 MEQ/L (136-145)
[2016-06-08 05:40] LABS: INR 1.13
[2016-06-08] MEDS: SLF 3 ML SYR IV SCH ×3 (06:00→20:47)
[2016-06-08] MEDS: FORMOTEROL FUMARATE 20 MCG/2 ML INHALATION SOLUTION (PERFOROMIST) INH SCH ×2 (06:49→20:29)
[2016-06-08] MEDS: BUDESONIDE 0.5 MG/2 ML INHALATION SUSPENSION INH SCH ×2 (06:49→20:29)
[2016-06-08 08:00] VITALS: BP 125/78
[2016-06-08] MEDS: IPRATROPIUM 0.5MG/ALBUTEROL 2.5MG INH SOL UD 3ML (DUONEB)(J7620) NEB SCH ×2 (08:00→17:12)
[2016-06-08] MEDS ORDERED: D5W/0.9% SODIUM CHLORIDE 1,000 ML IV SCH (08:15)
[2016-06-08] MEDS ORDERED: POTASSIUM CHLORIDE 10 MEQ SR TABLET PO ONE (08:15)
[2016-06-08] MEDS: CYCLOBENZAPRINE 5MG TABLET PO SCH ×2 (09:00→20:47)
[2016-06-08] MEDS: MULTIVITAMINS/MINERALS THERAP 1 TAB PO SCH (09:00)
[2016-06-08] MEDS: THIAMINE 100 MG TAB PO SCH (09:00)
[2016-06-08] MEDS: risperiDONE 0.5 MG TAB PO SCH (09:00)
[2016-06-08] MEDS: DOCUSATE SODIUM 100 MG CAP PO SCH ×2 (09:00→20:47)
--- NOTE | 2016-06-08 09:28 | REP ---
Portable chest x-ray: Single view. History: Hypoxia. Comparison study June 04, 2016. Findings: The previously noted left pleural effusion has progressed in the interval since the June 04, 2016 prior study. There is a small amount of residual aeration in the left upper lobe. The left hemithorax is otherwise completely opaque today. There appears to be some shift of the mediastinum to the right. The right lung is clear. Impression: Increasing left pleural effusion now quite large. Consolidation or collapse left lower lobe. Decreasing aeration left upper lobe. Signed by Alhaji Bryson MD 06/08/2016 12:47 P
[2016-06-08 10:55] VITALS: BP 121/88
[2016-06-08] MEDS ORDERED: MORPHINE SULFATE CADD 100 MG in APPROPRIATE DILUENT 1 EA IV SCH (11:29)
[2016-06-08] MEDS ORDERED: SCOPOLAMINE 1.5 MG TRANSDERMAL TD PRN (11:30)
[2016-06-08] MEDS ORDERED: LORazepam 2 MG/ML VIAL (J2060) IV PRN (11:30)
--- NOTE | 2016-06-08 12:27 | IPNPDOC ---
Text Note Date of Service The patient was seen on 06/08/16. NOTE Subjective: Pt lethargic; less agitated. I have been having extensive conversations with and brother, along with the patient's parents today. I spoke with son/daughter of patient yesterday. Consensus of family was to withhold all procedures, medications, labs, and proceed with comfort care only. Objective: Vitals: (see below) General: No acute distress, laying comfortably in bed. Oriented to person, place , and time today, however still confused and agitated. HEENT: Moist mucous membranes. Neck: No JVD or lymphadenopathy Cardiac: Tachycardic, No murmurs Pulm: Labored, although no use of accessory muscles. Diminished breath sounds at the bases b/l. Increasing rhonchi/ wheezing left hemithorax. Abd: NT/ND + BS Ext: No edema or cyanosis Cranial nerve II through XII intact. Confused. Following commands moving all extremities. 5-5 strength in all extremities. Negative Babinski. DTR 2+ BLE. Labs (see below) Images: CTA Head 06/06/16 IMPRESSION: Limited examination demonstrating a 3 mm focus of enhancement in the medial right frontal lobe. This most likely represents a small metastasis, however, the possibility of a developmental venous anomaly cannot be excluded. A repeat MR examination with contrast is recommended for further evaluation. MRA Brain 06/06/16 IMPRESSION: Very limited examination demonstrating a small 3 mm enhancing lesion in the right frontal lobe. Assessment/Plan 1. Metabolic encephalopathy - likely multifactorial. Less agitated; requiring benzodiazepines, which may be contributing to his confusion. OnSerax, and Ativan PRN. Haldol ordered when necessary. Patient also has a right frontal lesion which likely represents a metastasis. Looking back at the patient's CAT scan findings prior to admission, the patient did have notable consolidation on a CT chest, and in correlation with his tachycardia, hypoxia, and leukocytosis, will start patient on vancomycin and Zosyn for pneumonia. His EEG is negative for seizures. Neurology has been consulted as well, and appreciate Dr. Andujar's input. 2. Acute pulmonary embolism, likely secondary to metastatic disease- on heparin drip. Echocardiogram with no RV strain. Pulmonary on board. 3. 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 Has been evaluated by orthopedics. Brace has been ordered. We'll ultimately need cancer diagnosis prior to radiation therapy for palliative care. Morphine and Percocet PRN pain. 4. Extensive tobacco and alcohol use 5. Recent DT from alcohol withdrawal, status post precedex drip. On Serax and Ativan. 6. ? Metastatic lesion in the frontal lobe versus vascular lesion- discussed with radiologist, who recommends CT of the head. 7. Worsening hypoxic respiratory failure with enlarging left pleural effusion- likely paraneoplastic/parapneumonic. 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 DVT prophy: Heparin drip Very bad prognosis. Family Aware. Family is aware that the patient is critical , and that his prognosis is very poor. On 06/08, has signed Comfort measures MOLST FORM after multiple extensive conversations with the family. Aggressive measures have been discontinued. VS,Fishbone, I+O VS, Fishbone, I+O Laboratory Tests 06/08/16 04:59 Anion Gap 6 L, Red Blood Count 3.73 L, Mean Corpuscular Volume 90.4, Mean Corpuscular Hemoglobin 28.6, Mean Corpuscular Hemoglobin Concent 31.6 L, Red Cell Distribution Width 13.3 Vital Signs Date Time Temp Pulse Resp B/P Pulse Ox O2 Delivery O2 Flow Rate FiO2 06/08/16 10:55 117 19 121/88 95 High Flow Cannula 8.0 06/08/16 08:00 98.7 06/02/16 12:13 97 I&O- Last 24 Hours up to 6 AM 06/08/16 06:00 Intake Total 1429 ml Output Total 150 ml Balance 1279 ml DIANNA TAVAREZ MD Jun 08, 2016 12:27
[2016-06-08] MEDS ORDERED: NS 1,000 ML IV SCH (13:15)
[2016-06-08] MEDS: KCL 10MEQ IN 100ML SWI (KRUN) 10 MEQ in APPROPRIATE DILUENT 1 EA IV SCH ×2 (17:29)
[2016-06-08] MEDS: CYCLOBENZAPRINE 10 MG TAB PO SCH (17:29)
[2016-06-08] MEDS: FOLIC ACID 1 MG TAB PO SCH (20:47)
[2016-06-09] MEDS: IPRATROPIUM 0.5MG/ALBUTEROL 2.5MG INH SOL UD 3ML (DUONEB)(J7620) NEB SCH
[2016-06-09] MEDS: OXAZEPAM 10 MG CAP PO SCH
--- NOTE | 2016-06-09 11:25 | DS.PDOC ---
Discharge Summary General Date of Admission May 29, 2016 at 17:16 Date of Discharge 06/08/16 Attending Physician: DIANNA TAVAREZ MD Specialist/Consultants Involve: Maryana MACKAY MD Specialist/Consultants Involve Dr. Fowler Discharge Summary PROCEDURES PERFORMED DURING STAY: None. ADMITTING/DISCHARGE DIAGNOSES: 1. Acute hypoxic respiratory failure secondary to pulmonary embolism/ progressive left pleural effusion 2. Metabolic encephalopathy secondary to delirium tremens, sepsis from pneumonia , metastatic brain lesion 3. Extensive metastatic spine disease with T10 fracture and moderate to severe canal stenosis 4. DT alcohol withdrawal 5. History of Significant tobacco abuse COMPLICATIONS/CHIEF COMPLAINT: Pulmonary Embolism. HISTORY OF PRESENT ILLNESS/HOSPITAL COURSE: . This is a 55-year-old male with past history of significant tobacco abuse, COPD who had been complaining of shortness of breath and chest pain for 5-6 weeks prior to presentation. Patient initially had a chest x-ray in April with pneumonia or pulmonary contusion noted. Patient was apparently placed on antibiotic by his primary care physician. The patient continued to have chest pain as well as shortness of breath presented again to his primary care physician on the Saturday prior to him presenting to the ED, had a CT of the chest completed and was referred to the ED due to the results. Upon arrival to the ED patient was noted to have a large pleural effusion on the left as well as an acute pulmonary emboli. The patient was placed on heparin drip. The patient also been complaining of significant back pain for which his thoracic and lumbar spine were imaged with notable T10 fracture as well as moderate to severe canal stenosis, and extensive metastatic disease of the spine and ribs. Patient was admitted to [facility], evaluated by orthopedics with recommendations for conservative management, brace, as well as a consult for radiation oncology for which that was placed. Radiation oncology recommended a formal diagnosis with biopsy prior to proceeding with palliative radiation. During the course of his hospitalization, the patient developed alcohol withdrawal and delirium tremors. His respiratory status progressively declined as his left pleural effusion progressively worsened. The patient was also noted to have consolidation on his CAT scan of the chest for which she was started on vancomycin and Zosyn for possible sepsis contributing to his metabolic encephalopathy. Multiple attempts were made for thoracentesis however given the patient's agitation, this was unable to be done given the patient's uncooperativeness given significant amount of sedation. Thoracentesis was arranged in the OR with anesthesia and IR, however decided to hold off until the patient's son and daughter see him, and afterwards the decided not to proceed with a thoracentesis. Imaging of the brain with MRI as well as CTA noted a 3 mm likely metastatic lesion. Given the patient's progressive condition, the family has decided not to pursue aggressive measures for diagnostic purposes. They believe that the patient would not have wanted such aggressive measures. Family was aware that the patient is critical, and that his prognosis is very poor. On 06/08, has signed Comfort measures MOLST FORM after multiple extensive conversations with the family. Aggressive measures have been discontinued. The patient on 06/09/16. DISCHARGE MEDICATIONS: Please see below. ALLERGIES: Please see below. LABORATORY DATA: Please see below. IMAGING: MRI thoracic spine, 05/30/16 Impression: Multifocal skeletal metastatic disease. There is moderate to severe central canal stenosis at T10 due to collapse, retropulsion and epidural enhancing neoplasm. There is mild epidural enhancing involvement at T9 and at T6. Multiple other sites of osseous involvement are noted as above. MRI Lumbar spine 05/30/16 Impression: Multifocal skeletal metastatic disease pattern as above. Degenerative spondylosis most pronounced at L3-4, L4-5, and L5-S1. Bone Scan 06/01/16 IMPRESSION: Multiple foci of increased uptake in bilateral ribs and subtle increased uptake in T10 compatible with metastatic lesions. No other evidence of metastatic lesions scintigraphically. MRI brain on 06/05/16 The examination is limited secondary to motion. A small focus of increased signal intensity on T2-weighted images is present in the right frontal lobe. There is a 3 mm focus of enhancement. There is no intraparenchymal hemorrhage, infarct, or midline shift. The ventricular system is normal in appearance. There is no extracerebral collection. IMPRESSION: Very limited examination demonstrating a small 3 mm enhancing lesion in the right frontal lobe. CTA Head 06/06/16 IMPRESSION: Limited examination demonstrating a 3 mm focus of enhancement in the medial right frontal lobe. This most likely represents a small metastasis, however, the possibility of a developmental venous anomaly cannot be excluded. A repeat MR examination with contrast is recommended for further evaluation. CXR 06/08/16 Impression: Increasing left pleural effusion now quite large. Consolidation or collapse left lower lobe. Decreasing aeration left upper lobe. DISPOSITION: 20 . TIME SPENT ON DISCHARGE: Greater than 30 minutes. Vital Signs/I&Os Vital Signs Date Time Temp Pulse Resp B/P Pulse Ox O2 Delivery O2 Flow Rate FiO2 06/08/16 21:30 Nasal Cannula 3.0 06/08/16 10:55 117 19 121/88 95 06/08/16 08:00 98.7 I&O- Last 24 Hours up to 6 AM 06/09/16 06:00 Intake Total 60 ml Output Total 300 ml Balance -240 ml Microbiology Microbiology 06/07/16 Blood Culture - Preliminary, Resulted No Growth after 48 hours. All Specime... 06/07/16 Blood Culture - Preliminary, Resulted No Growth after 48 hours. All Specime... 05/31/16 Urine Culture - Final, Complete Discharge Medications Scheduled (Anoro Ellipta 62.5-25 Mcg/INH) 1 Aer Aer, 1 AER INH DAILY, (Reported) Cyclobenzaprine HCl (Cyclobenzaprine HCl) 10 Mg Tab, 10 MG PO TID, (Reported) Scheduled PRN Acetaminophen/Hydrocodone (Hydrocodone/Acetaminophen 5-325 mg) 1 Tab Tab, 1 TAB PO 5XD PRN for PAIN, (Reported) Albuterol Sulfate (Albuterol Sulfate) 2.5 Mg/3 Ml Nebu, 2.5 MG INH TID PRN for SHORTNESS OF BREATH, (Reported) MIX WITH IPRATROPIUM Albuterol Sulfate (Ventolin Hfa) 200 Puff/8 Gm Aers, 2 PUFF INH Q4H PRN for SHORTNESS OF BREATH, (Reported) Ipratropium [place] (Ipratropium [place]) 0.5 Mg/2.5 Ml Soln, 0.5 MG INH TID PRN for SHORTNESS OF BREATH, (Reported) MIX WITH ALBUTEROL Omeprazole (Omeprazole) 20 Mg Cap, 20 MG PO DAILY PRN for HEARTBURN, (Reported) Allergies Coded Allergies: No Known Drug Allergy (Verified Allergy, Unknown, 05/29/16) DIANNA TAVAREZ MD Jun 09, 2016 11:25
== END 2016-06-09 05:59 | disposition expired | DRG 720 ==
LOC: M ED 14:08 → M ED INP 17:16 → M ICU 18:54 → M MSPAV 06-08 14:44
PROVIDERS: ADMIT Internal Medicine; ATTEND Internal Medicine
DX: A41.9 Sepsis, unspecified organism (principal); I26.99 Other pulmonary embolism without acute cor pulmonale; J96.01 Acute respiratory failure with hypoxia; G93.41 Metabolic encephalopathy; F10.231 Alcohol dependence with withdrawal delirium; J90 Pleural effusion, not elsewhere classified; J18.9 Pneumonia, unspecified organism; C79.31 Secondary malignant neoplasm of brain; C79.51 Secondary malignant neoplasm of bone; M84.48XA Pathological fracture, other site, initial encounter for fracture; J44.9 Chronic obstructive pulmonary disease, unspecified; Z51.5 Encounter for palliative care; Z66 Do not resuscitate; Z79.891 Long term (current) use of opiate analgesic; Z79.51 Long term (current) use of inhaled steroids; Z79.899 Other long term (current) drug therapy; Z87.891 Personal history of nicotine dependence